=== PATIENT | female | born 1950 | race Caucasian/White ===

== ENCOUNTER → 2024-01-08 | Outpatient (CLI) | payer MEDICARE, MEDICAID, SELFPAY ==
[2024-01-08 10:55] LABS: Basophils % (Auto) 1 % (0-2.5); Eosinophils # (Auto) 0.1 Thou/mm3 (0.0-0.5); Eosinophils % (Auto) 2 % (0-10); Hematocrit 35.6 % (36.0-46.0); Hemoglobin 11.4 g/dL (12.0-16.0); Immature Granulocytes % (Auto) 0 % (0-0); Lymphocytes # (Auto) 1.5 Thou/mm3 (1.0-4.8); Lymphocytes % (Auto) 35 % (10-50); Mean Corpuscular Hemoglobin 33.6 pg (25.0-35.0); Mean Corpuscular Volume 105 fL (80-100); Monocytes # (Auto) 0.6 Thou/mm3 (0.0-0.8); Monocytes % (Auto) 14 % (0-12); Neutrophils % (Auto) 48 % (37-80); Nucleated Red Blood Cell % 0 /100 WBC (0); Platelet Count 252 Thou/mm3 (140-440); RDW Standard Deviation 60.2 fL (36.4-46.3); Red Blood Count 3.39 Miln/mm3 (4.00-5.20); White Blood Count 4.2 Thou/mm3 (3.6-11.0)
[2024-01-08 10:56] LABS: Parathyroid Hormone Intact 205.2 pg/ml (18.5-88.0)
[2024-01-08 10:58] LABS: Alanine Aminotransferase 49 U/L (10-49); Albumin, Serum 4.8 gm/dL (3.4-4.8); Albumin/Globulin Ratio 2.1 (1.2-2.2); Alkaline Phosphatase 139 U/L (46-116); Anion Gap 3 (7-16); Aspartate Amino Transferase 36 U/L (0-34); BUN/Creatinine Ratio 21 Ratio (12-20); Bilirubin,Total 0.6 mg/dL (0.3-1.2); Blood Urea Nitrogen 23 mg/dL (9-23); Calcium 9.7 mg/dL (8.3-10.6); Calcium (Corrected) 9.7 mg/dL (8.5-10.1); Carbon Dioxide 29.1 mMol/L (20.0-31.0); Chloride 107 mMol/L (98-107); Creatinine (Component) 1.1 mg/dL (0.6-1.3); Free T4 (Free Thyroxine) 1.26 ng/dL (0.89-1.76); Globulin 2.3 gm/dL (2.3-3.5); Glucose 130 mg/dL (74-106); Osmolality,Calculated 283 (275-295); Phosphorous 3.7 mg/dL (2.4-5.1); Potassium 4.4 mMol/L (3.4-5.1); Sodium 139 mMol/L (136-145); Thyroid Stimulating Hormone 9.52 uIU/mL (0.55-4.78); Total Protein 7.1 gm/dL (5.7-8.2); eGFR 54 See Note
== END | disposition home or self-care (01) ==
LOC: COPL 09:22
PROVIDERS: PCP Nurse Practitioner Family; Referring Provider Internal Medicine Nephrology; Visit Provider Internal Medicine Nephrology
DX: I12.9 Hypertensive chronic kidney disease with stage 1 through stage 4 chronic kidney disease, or unspecified chronic kidney disease (principal); N18.9 Chronic kidney disease, unspecified; D63.1 Anemia in chronic kidney disease; E21.3 Hyperparathyroidism, unspecified; E03.9 Hypothyroidism, unspecified
CPT/HCPCS: 36415; 80053; 83970; 84100; 84439; 84443; 85025

== ENCOUNTER 2024-01-24 13:29 | Outpatient (AMB) | payer MEDICARE, MEDICAID, SELFPAY ==
[2024-01-24 13:39] VITALS: BP 138/97; PULSE 67; RESP 18; TEMP 36.6; O2SAT 94; BMI 31.5
--- NOTE | 2024-01-24 13:39 | ORTHONT_ITS ---
Vital signs 01/24/24 13:39 Height 1.7 m Height Method Stated Weight 91.229 kg Weight Measurement Method Standing Scale BMI 31.5 BP 138/97 H Blood Pressure Source Automatic Cuff Blood Pressure Location Right Upper Arm Position Sitting Respiration 18 Pulse 67 Pulse Source Monitor Temp 97.8 F Temp Source Temporal Artery Scan Pulse Oximetry (%) 94 L Oxygen Delivery Method Room Air Med/Allergies Allergies & Medications Allergies amoxicillin [From Augmentin] Allergy (Intermediate, Verified 01/24/24 13:40) Gastrointestinal Upset clavulanic acid [From Augmentin] Adverse Reaction (Intermediate, Verified 01/24/24 13:40) Gastrointestinal Upset Medication Reconciliation loratadine 10 mg tablet (Claritin) 10 mg PO QDAY #0 tabs 08/31/14 [History Confirmed 01/24/24] acyclovir 400 mg tablet 400 mg PO QDAY 07/07/18 [History Confirmed 01/24/24] albuterol sulfate 90 mcg/actuation aerosol inhaler 2 puff inhalation Q6H PRN Wheezing 01/06/19 [History Confirmed 01/24/24] hmthgvm-gjibvddnr-udgi tablet 1 tab PO DAILY 01/06/19 [History Confirmed 01/24/24] B-complex with vitamin C (Super B Complex-Vitamin C tablet) 1 tab PO QDAY 08/12/19 [History Confirmed 01/24/24] ascorbic acid (vitamin C) 1,000 mg tablet (Vitamin C) 1,000 mg PO QDAY 08/12/19 [History Confirmed 01/24/24] uemzvfvbahhm-nylibypa-ctame acid 400 mcg-vitamin K 80 mcg capsule (Multi For Her 50 Plus) 1 cap PO QDAY 08/12/19 [History Confirmed 01/24/24] atorvastatin 40 mg tablet 40 mg PO QDAY 09/29/20 [History Confirmed 01/24/24] furosemide 40 mg tablet 80 mg PO QDAY 09/29/20 [History Confirmed 01/24/24] isosorbide mononitrate 30 mg tablet,extended release 24 hr 30 mg PO QDAY 09/29/20 [History Confirmed 01/24/24] tiotropium bromide 1.25 mcg/actuation mist for inhalation (Spiriva Respimat) 2 puff inhalation Q24H 08/22/21 [History Confirmed 01/24/24] acetaminophen 500 mg tablet 1,000 mg PO Q6H PRN Pain 08/13/22 [History Confirmed 01/24/24] biotin 5 mg capsule 5 mg PO QDAY 08/13/22 [History Confirmed 01/24/24] carvedilol 3.125 mg tablet 3.125 mg PO BID 08/13/22 [History Confirmed 01/24/24] diclofenac sodium 1 % topical gel 4 g topical QID 08/13/22 [History Confirmed 01/24/24] diphenhydramine HCl 25 mg tablet 50 mg PO HS Sleep Disorder 08/13/22 [History Confirmed 01/24/24] famotidine 20 mg tablet (Pepcid) 20 mg PO QDAY PRN Heartburn 08/13/22 [History Confirmed 01/24/24] gabapentin 800 mg tablet 800 mg PO TID 08/13/22 [History Confirmed 01/24/24] hydrocodone 5 mg-acetaminophen 325 mg tablet 1 tab PO Q6H PRN pain #20 tabs 08/14/22 [Rx Confirmed 01/24/24] levothyroxine 150 mcg tablet 150 mcg PO QDAY 02/09/23 [History Confirmed 01/24/24] metformin 850 mg tablet 850 mg PO BIDWMEAL 02/09/23 [History Confirmed 01/24/24] tizanidine 4 mg tablet 4 mg PO BID PRN Muscle Spasm 02/09/23 [History Confirmed 01/24/24] aspirin 81 mg tablet 81 mg PO QDAY 07/19/23 [History Confirmed 01/24/24] lidocaine HCl 2 % mucosal solution (Lidocaine Viscous) 1 ml topical Q4HR PRN pain #30 mL 12/06/23 [Rx Confirmed 01/24/24] ferrous sulfate 325 mg (65 mg iron) tablet 325 mg PO QDAY 01/24/24 [History Confirmed 01/24/24] Subjective Visit Visit for: follow up visit and knee Immunization / Flu Flu Vaccine in the Last 12 Months: No Flu Vaccine Exclusion Criteria: No Exclusion Criteria History of Present Illness Chief complaint: FOLLOW UP Harriet is a pleasant 73-year-old female with who had a right knee replacement in 2015 followed by a left knee replacement 2016. She is recovering from her right total hip replacement with Dr. Eid and is doing well. Pain Pain level (0-10): 7 Pain duration: ALL DAY Pain location: inside (medial), outside (lateral), anterior and posterior Pain quality: sharp Pain timing: increases with activity Associated signs & symptoms: none Ambulatory data Ambulatory device: cane Treatments Improvement with previous injections: No Improvement with PT: No Improvement with NSAIDS: no Review of Systems Review of Systems: All systems negative unless otherwise noted in HPI. Exam Exam Patient is in no acute distress and is cooperative with the examination today. Breathing is nonlabored. In no respiratory distress. Bilateral extremities were evaluated and demonstrates sensation intact to light touch. Palpable pedal pulses are present. No significant edema is present. Right knee demonstrates instability. Assessment and Plan Problem List (1) Knee instability: Status: Acute Plan: Patient is a pleasant 73-year-old female with knee instability. She had a total knee replacement 5 years ago. It is grossly unstable in both AP and lateral michelle suzy. She reports that she gets effusions and she frequently gets this drained. I discussed I do not recommend this. I discussed that there is usually a secondary cause of the effusion. She is doing well after her hip replacement. She has left hip and right knee pain but wants to wait and see what happens before pursing anything. Advanced Care Planning Discussion Advance care planning discussed with:: patient Office Procedures GNS Level of Care Nursing/Assessment Patient Status: Established Patient Nursing Assessment/Reassesment: Medication Reconciliation, Update PMH in EMR and Vital Signs Coordination of Care: Complex Care and Chronic Disease 1-5, Education Complex Pt/Fam, Consent,records obtained, informed consent, Results/Orders obtained and Staff clarify orders Established Patient Charge Established Patient Point Assignment: 95 Established Patient Point Charge: EP Level 3 (80-115) Past Medical History Past Medical History Have you ever been diagnosed with any of the following: Neurological Problems Seizures: No Cardiology Problems Hypercholesterolemia: Yes Congestive Heart Failure: No Edema: Yes Hypertension: Yes Respiratory Problems Chronic Obstructive Pulmonary Disease (COPD): Yes Asthma: No Bronchitis: Yes Pneumonia: Yes Smoking: Yes (quit 9 years ago) Smoking Exposure: No Stomache/Intestinal Problems Gall Bladder Disease: Yes Hemorrhoids: Yes Gastroesophageal Reflux Disease: No Obesity: Yes Genital/Urinary Problems Renal Disease: Yes Reproductive Problems Breast Cancer: No Pelvic Inflammatory Disease: No Previous Pregnancies: Yes Musculoskeletal Problems Arthritis: Yes Osteoporosis: No Degenerative Disk Disease: Yes Fractures: Yes (RIGHT FOOT 10 YEARS AGO) Degenerative Joint Disease: Yes Head,Eye,Nose,Throat Problems Cataracts: Yes Deafness: Yes Endocrine Problems Diabetes Mellitus Type 1: No Diabetes Mellitus Type 2: Yes Hypothyroidism: Yes Blood Problems Anemia: No Sickle Cell Disease: No Clotting Problems: No Psychologic Problems Depression: No Anxiety: No Other Problems Hospitalization: No Shingles: No Falls: No Blood Transfusions: No Blood Transfusion Reaction: No Anesthesia Reactions: No Chemotherapy: No Radiation Therapy: No MRSA: No VRSA: No Vancomycin-Resistant Enterococci: No Chicken Pox: Yes Clostridium Difficile: No Cancer: Yes Lung Cancer: Yes Surgical History Hysterectomy: Yes
== END 2024-01-24 14:03 | disposition home or self-care (01) ==
LOC: HODSRG 13:29
PROVIDERS: PCP Nurse Practitioner Family; Referring Provider Nurse Practitioner Family; Supervising Provider Orthopaedic Surgery Adult Reconstructive Orthopaedic Surgery; Visit Provider Orthopaedic Surgery Adult Reconstructive Orthopaedic Surgery
DX: M25.361 Other instability, right knee (principal); M25.552 Pain in left hip; M25.561 Pain in right knee; Z96.653 Presence of artificial knee joint, bilateral; I10 Essential (primary) hypertension; E78.00 Pure hypercholesterolemia, unspecified; J44.9 Chronic obstructive pulmonary disease, unspecified
CPT/HCPCS: 99213; G0463

== ENCOUNTER 2024-01-28 13:30 | Outpatient (RCR) | payer MEDICARE, MEDICAID, SELFPAY ==
--- NOTE | 2024-01-07 14:53 | PT.ODS1RPT ---
PT OP Progress/Discharge Note Date of Service: 01/07/24 Progress Note/DC Note Progress Note/Discharge Note: Progress Note Patient Information Visit Reasons: Right hip Surgery Service Continue Service or Discharge: Continue Service Status Subjective: Less difficulty lifting LE into and OOB and she is ambulating with a cane and driving which she is happy about. Objective: See F/S for therex R hip AROM: Flexion: 90 deg AB: 35 deg Gait: improved WB on R LE with SPC Assessment: Pt has attended the eval and 7 Rx sessions with improved R hip ROM and strength. Pt has less tissue irritability of R hip and improved WB tolerance and hip flexor strength with SLR and making progress with goals. She is ambulating with a cane more now vs the FWW. Plan: Continue per POC up to 18 visits Procedure Charges Therapeutic Exercise 30 minutes: Yes
--- NOTE | 2024-01-09 18:09 | PT.ODAYNRPT ---
PT Outpatient Daily Note OP Daily Note Outpatient Physical Therapy Treatment Date: 01/09/24 Visit Reasons: Right hip Surgery Subjective: Less difficulty lifting LE into and OOB and she is ambulating with a cane and driving which she is happy about. Objective: See F/S for therex R hip AROM: Flexion: 90 deg AB: 35 deg Gait: improved WB on R LE with SPC Assessment: Pt has less tissue irritability of R hip and improved WB tolerance and hip flexor strength with SLR and making progress with goals. She is ambulating with a cane more now vs the FWW. Plan: Continue per POC Length of Time (minutes) of Treatment: 30 Minutes Procedure Charges Therapeutic Exercise 30 minutes: Yes
--- NOTE | 2024-01-14 14:32 | PT.ODAYNRPT ---
PT Outpatient Daily Note OP Daily Note Outpatient Physical Therapy Treatment Date: 01/14/24 Visit Reasons: Right hip Surgery Subjective: Less difficulty lifting LE into and OOB and she is ambulating with a cane and driving which she is happy about. Objective: See F/S for therex R hip AROM: Flexion: 90 deg AB: 35 deg Gait: improved WB on R LE with SPC Assessment: Pt has less tissue irritability of R hip and improved WB tolerance and hip flexor strength with SLR and making progress with goals. She is ambulating with a cane more now vs the FWW. Plan: Continue per POC Length of Time (minutes) of Treatment: 30 Minutes Procedure Charges Therapeutic Exercise 30 minutes: Yes
--- NOTE | 2024-01-16 14:02 | PTNOTE_ITS ---
PT Outpatient Daily Note OP Daily Note Outpatient Physical Therapy Treatment Date: 01/16/24 Visit Reasons: Right hip Surgery Subjective: Pt reports hip is progressing but slowly. Objective: Please see flow sheet for ther ex list Assessment: Focus on restoring ROM and functional strength, progressing interventions per post op protocol Plan: Continue with POC. Length of Time (minutes) of Treatment: 30 Minutes AGED OR DISABLED CARE WORKER Service Modifier Method I: Divide the number of min of care provided by the AGED OR DISABLED CARE WORKER/REPORT SPECIALIST by the total min of care provided then multiply by 100. If greater than 11 percent modifier is required. Method II: Divide the total time of care provided to patient by 10 (round to the nearest whole number) and add 1 min. to set the minimum time requirement. If treatment total was 60 min., then 10% of 6 min PT CQ modifier applied: CQ Modifier applied Procedure Charges Therapeutic Exercise 30 minutes: Yes
--- NOTE | 2024-01-21 14:08 | PT.ODAYNRPT ---
PT Outpatient Daily Note OP Daily Note Outpatient Physical Therapy Treatment Date: 01/21/24 Visit Reasons: Right hip Surgery Subjective: Pt reports R hip is doing better, notices she is walking short distance without cane and is more confident. Objective: Please see flow sheet for ther ex list. Assessment: Pt demonstrates increase endurance indicated by less seated rest breaks and increase tolerance for closed chain interventions. Plan: Continue with pOC. Length of Time (minutes) of Treatment: 30 Minutes Procedure Charges Therapeutic Exercise 30 minutes: Yes
--- NOTE | 2024-01-23 14:40 | PT.ODAYNRPT ---
PT Outpatient Daily Note OP Daily Note Outpatient Physical Therapy Treatment Date: 01/23/24 Visit Reasons: Right hip Surgery Subjective: Pt reports R hip is feeling better notices she can tolerate walking and being on her feet more at home. Objective: Please see flow sheet for thex list. Assessment: Pt demonstrates increase tolerance with lateral stepping indicated by pt able to perform more reps with less seated rest breaks. Plan: Continue with POC. Length of Time (minutes) of Treatment: 30 Minutes Procedure Charges Therapeutic Exercise 30 minutes: Yes
--- NOTE | 2024-01-28 14:20 | PT.ODAYNRPT ---
PT Outpatient Daily Note OP Daily Note Outpatient Physical Therapy Treatment Date: 01/28/24 Visit Reasons: Right hip Surgery Subjective: Pt reports hip is doing ok, pt mentioned she has been feeling short of breath yesterday and has an appointment with her leaf tinner today. As per pt primary care doctor said spo2 levels were raulito.l Objective: Please see flow sheet for ther ex list. Assessment: regressed interventions and interventions given with increase rest breaks to accommodate c/o SOB. Plan: Continue with POC. Length of Time (minutes) of Treatment: 30 Minutes CHIEF ENGINEER DRILLING AND RECOVERY Service Modifier Method I: Divide the number of min of care provided by the CHIEF ENGINEER DRILLING AND RECOVERY/LAVATORY ATTENDANT by the total min of care provided then multiply by 100. If greater than 11 percent modifier is required. Method II: Divide the total time of care provided to patient by 10 (round to the nearest whole number) and add 1 min. to set the minimum time requirement. If treatment total was 60 min., then 10% of 6 min PT CQ modifier applied: CQ Modifier applied Procedure Charges Therapeutic Exercise 30 minutes: Yes
== END 2024-02-01 23:59 | disposition home or self-care (01) ==
LOC: CPTX 13:30
PROVIDERS: PCP Nurse Practitioner Family; Referring Provider Physician Assistant; Visit Provider Physician Assistant
DX: M25.551 Pain in right hip (principal); R53.1 Weakness; Z96.641 Presence of right artificial hip joint
CPT/HCPCS: 97110

== ENCOUNTER 2024-01-29 09:03 | Emergency (ER) | payer MEDICARE, MEDICAID, SELFPAY ==
--- NOTE | 2024-01-29 09:11 | EKG_ITS ---
[facility] Test Date: 2024-01-29 Pat Name: NISHANT LOCKWOOD Department: Room: - Gender: Female Reporter Anchor: : 1950 Requested By: Romaine Trimble (JOSUE) Order Number: [id number] Reading MD: Romaine Trimble (PEELED POTATO INSPECTOR) Measurements Intervals [employer] Rate: 56 P: 71 HI: 174 QRS: 62 QRSD: 108 T: 46 QT: 437 QTc: 424 Interpretive Statements SINUS BRADYCARDIA WITH OCCASIONAL SUPRAVENTRICULAR PREMATURE COMPLEXES Compared to ECG 07/18/2023 12:46:30 No significant changes /store/S0/[id number].pdf
--- NOTE | 2024-01-29 09:20 | XR_ITS ---
Examination: AP chest single view Technique one AP upright portable chest single view Exam date and time: January 29, 2024 0959 hours Comparison December 05, 2023 INDICATIONS: Shortness of breath with, chronic, diagnosis lung cancer post surgery FINDINGS: Postsurgical changes left mediastinum Decreased volume left lung No significant cardiac enlargement No interval pneumonia or pulmonary edema Chronic left rib changes IMPRESSION: Postsurgical changes left mediastinum again noted No interval pneumonia or pulmonary edema
[2024-01-29 09:40] VITALS: BP 120/57; PULSE 117; RESP 24; TEMP 36.6; O2SAT 81
[2024-01-29 09:45] VITALS: PULSE 51
--- NOTE | 2024-01-29 09:52 | PD.EDSOB ---
ED SOB =RME/HPI General Chief Complaint: Shortness of Breath/Dyspnea Stated Complaint: SOB, irregular heart beat Time Seen by Provider: 01/29/24 09:49 Arrival date/time: 01/29/24 09:03 RME / HPI RME / HPI Narrative: 73 year old female with history of CHF, previous OK, COPD on 3L nasal cannula, hypertension, hyperlipidemia, s/p right hip surgery 12/03/2023 presents to the ED for shortness of breath and increased dyspnea on exertion beginning 2 days ago. Accompanied by a cough although reports is chronic and unchanged. Reportedly consulted with her pediatric medical assistant Dr. Calixto yesterday and had an EKG and physical exam performed. States she was told then to come to the ED for further evaluation. However, because the patient was seen late evening and is unable to drive at night, patient came today instead. Patient additionally reported she was started on Metropolol by pediatric medical assistant and took her first dose last night. Does not know why she was started on that medication. Denies fevers, chills, sweats, chest pain, abdominal pain, n/v/d, or urinary symptoms. Related Data Home Medications ?Medication ?Instructions ?Recorded ?Confirmed loratadine 10 mg tablet (Claritin) 10 mg PO QDAY #0 tabs 08/31/14 01/24/24 acyclovir 400 mg tablet 400 mg PO QDAY 07/07/18 01/24/24 albuterol sulfate 90 mcg/actuation 2 puff inhalation Q6H PRN Wheezing 01/06/19 01/24/24 aerosol inhaler wlqklbg-khqorpqsg-[id number] tablet 1 tab PO DAILY 01/06/19 01/24/24 B-complex with vitamin C (Super B 1 tab PO QDAY 08/12/19 01/24/24 Complex-Vitamin C tablet) ascorbic acid (vitamin C) 1,000 mg 1,000 mg PO QDAY 08/12/19 01/24/24 tablet (Vitamin C) foelviazgiks-meijcpmo-iaeoo acid 1 cap PO QDAY 08/12/19 01/24/24 400 mcg-vitamin K 80 mcg capsule (Multi For Her 50 Plus) atorvastatin 40 mg tablet 40 mg PO QDAY 09/29/20 01/24/24 furosemide 40 mg tablet 80 mg PO QDAY 09/29/20 01/24/24 isosorbide mononitrate 30 mg 30 mg PO QDAY 09/29/20 01/24/24 tablet,extended release 24 hr tiotropium bromide 1.25 2 puff inhalation Q24H 08/22/21 01/24/24 mcg/actuation mist for inhalation (Spiriva Respimat) acetaminophen 500 mg tablet 1,000 mg PO Q6H PRN Pain 08/13/22 01/24/24 biotin 5 mg capsule 5 mg PO QDAY 08/13/22 01/24/24 carvedilol 3.125 mg tablet 3.125 mg PO BID 08/13/22 01/24/24 diclofenac sodium 1 % topical gel 4 g topical QID 08/13/22 01/24/24 diphenhydramine HCl 25 mg tablet 50 mg PO HS Sleep Disorder 08/13/22 01/24/24 famotidine 20 mg tablet (Pepcid) 20 mg PO QDAY PRN Heartburn 08/13/22 01/24/24 gabapentin 800 mg tablet 800 mg PO TID 08/13/22 01/24/24 levothyroxine 150 mcg tablet 150 mcg PO QDAY 02/09/23 01/24/24 metformin 850 mg tablet 850 mg PO BIDWMEAL 02/09/23 01/24/24 tizanidine 4 mg tablet 4 mg PO BID PRN Muscle Spasm 02/09/23 01/24/24 aspirin 81 mg tablet 81 mg PO QDAY 07/19/23 01/24/24 ferrous sulfate 325 mg (65 mg 325 mg PO QDAY 01/24/24 01/24/24 iron) tablet Previous Rx's ?Medication ?Instructions ?Recorded hydrocodone 5 mg-acetaminophen 325 1 tab PO Q6H PRN pain #20 tabs 08/14/22 mg tablet lidocaine HCl 2 % mucosal solution 1 ml topical Q4HR PRN pain #30 mL 12/06/23 (Lidocaine Viscous) prednisone 50 mg tablet 50 mg PO QDAY #4 tabs 01/29/24 Allergies Allergy/AdvReac Type Severity Reaction Status Date / Time amoxicillin [From Augmentin] Allergy Intermediate Gastrointestinal Verified 01/24/24 13:40 Upset clavulanic acid AdvReac Intermediate Gastrointestinal Verified 01/24/24 13:40 [From Augmentin] Upset Review of Systems Review of Systems Narrative Review of Systems: Gen: No fever, no chills, no weight loss EYES: No discharge, no visual changes, no pain HEENT: No ear pain, no congestion, no sore throat PULM: +shortness of breath, +cough, no congestion CV: No chest pain, +dyspnea on exertion, no palpitations, no chest tightness GI: No nausea, no vomiting, no diarrhea, no pain, no constipation : No frequency, no urgency,? no dysuria Musc/skel: No joint pain, no back pain Skin: No rash, no ecchymosis, no lesions Psyc: No hallucinations, no depression Heme/Lymph: No easy bleeding or bruising tendencies Neuro: No weakness, no headache Past Medical History Past Medical History CARDIAC: Positive Cardiac Disorders, Hypercholesterolemia, Edema and Hypertension RESPIRATORY: Positive Chronic Obstructive Pulmonary Disease (COPD), Bronchitis, Pneumonia and Smoking (quit 9 years ago) GASTROINTESTINAL: Positive Gastrointestinal Disorders, Gall Bladder Disease, Hemorrhoids and Obesity GENITOURINARY: Positive Genitourinary Disorders and Renal Disease REPRODUCTIVE: Positive Previous Pregnancies MUSCULOSKELETAL: Positive Musculoskeletal Disorders, Arthritis, Degenerative Disk Disease, Fractures (RIGHT FOOT 10 YEARS AGO) and Degenerative Joint Disease ENT: Positive Cataracts and Deafness ENDOCRINE: Positive Endocrine Disorders, Diabetes Mellitus Type 2 and Hypothyroidism OTHER HISTORY: Positive Autoimmune Disease, Chicken Pox, Cancer and Lung Cancer Surgical History SURGICAL: Positive Eye Surgery, Tonsillectomy, Abdominal Surgery, Joint Replacement, Arthroscopy, Hysterectomy and Tubal Ligation Social History SMOKING STATUS: Current some day smoker SECOND HAND EXPOSURE: No SUBSTANCE USE: 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 MMM. EOMI, clear conjunctiva, oropharynx clear. NECK: Supple without lymphadenopathy. No stiffness or restricted ROM. HEART: Normal rate and regular rhythm, normal S1/S1, no m/r/g LUNGS: Speaking full sentences. CTAB, moving air well. No crackles or wheezes are heard. ABDOMEN: Soft, nontender, nondistended with good bowel sounds heard. BACK: No midline C/T/L spine pain or deformity, No CVAT, no obvious deformity. EXTREMITIES: Without cyanosis, clubbing or edema. MUSCULOSKELETAL: FROM of all major joints, no chest tenderness NEUROLOGICAL: Grossly nonfocal. Alert and oriented, moving all 4 extremities. CN not formally tested but appear grossly intact. Skin: Warm and dry without any rash. Course Course Course Narrative: chest xray ordered to help determine etiology of shortness of breath. Quality Measures none Orders Category Date Time Status Bedside COVID-19 Antigen Test NOW Care 01/29/24 09:21 Completed Bedside Influenza A&B Antigen Test NOW Care 01/29/24 09:[address] Screening NOW Care 01/29/24 10:40 Completed Strategy Manager NOW Care 01/29/24 09:20 Completed Continuous Pulse Oximetry NOW Care 01/29/24 09:26 Completed EKG (ED ONLY) *Do not use* NOW Care 01/29/24 09:11 Completed Insert IV NOW Care 01/29/24 09:[address] angio chest Stat Exams 01/29/24 10:40 Completed EKG (ED Only) Stat Exams 01/29/24 09:11 Draft XR chest 1V portable Stat Exams 01/29/24 09:20 Completed B-Type Natriuretic Peptide Stat Lab 01/29/24 09:40 Completed CBC Stat Lab 01/29/24 09:40 Completed Comprehensive Metabolic Panel Stat Lab 01/29/24 09:40 Completed Magnesium Stat Lab 01/29/24 09:40 Completed Partial Thromboplastin Time Stat Lab 01/29/24 09:40 Completed Prothrombin Time with INR Stat Lab 01/29/24 09:40 Completed Troponin I Stat Lab 01/29/24 09:40 Completed Albuterol/Ipratr Rt Aisha [Duoneb Rt Aisha] Med 01/29/24 13:52 Discontinued 6 ml INH X1 ONE predniSONE Med 01/29/24 13:52 Discontinued 60 mg PO X1 ONE Reevaluation(s) Reevaluation #1: Patient feels better after the nebulizer and oral steroids, she was able to walk the distance of the emergency department to the bathroom and back without shortness of breath. She?ll be discharged on oral steroids as a COPD exacerbation. We will have her hold the metoprolol that was started by her pediatric medical assistant yesterday due to her bradycardia here. Patient remains clinically stable throughout the emergency department visit. Re-assessment at the time of disposition demonstrates that the patient is in no acute distress. We reviewed all the results, analysis, and treatment plans. Patient is amenable to discharge. Strict return precautions were outlined. Patient was discharged in stable condition. Time: 17:07 Vital Signs Vital signs: Vital Signs Temperature 97.8 F 01/29/24 09:40 Pulse Rate 117 H 01/29/24 09:40 Respiratory Rate 24 H 01/29/24 09:40 Blood Pressure 120/57 L 01/29/24 09:40 Pulse Oximetry (%) 81 L 01/29/24 09:40 Oxygen Delivery Method Room Air 01/29/24 09:40 Pulse ox is 81% on room air which is hypoxic. Pulse ox is 95% on 2L which is adequate. Shortness of Breath / Dyspnea MDM Narrative MDM Narrative:: 73-year-old female with a history of advanced COPD, requiring oxygen, who presents with shortness of breath since yesterday. She was switched from carvedilol to metoprolol by her pediatric medical assistant and advised to come to the emergency department for the possibility of a pneumonia. As she was unable to drive during the dark last night she comes in this morning with respiratory difficulties. On clinical exam her respiratory distress is mild to moderate. Lung exams were distant with faint rhonchi but no obvious wheezes. Vital signs were significant for borderline sinus bradycardia, at rest she does drop to the high 40s on telemetry. Chest x-ray on my interpretation shows no acute cardiopulmonary findings, no cardiomegaly, I reviewed the radiology interpretation and agree. Given she has clear lung sounds, respiratory difficulty since yesterday, she is on metoprolol masking tachycardia, CT angio of the chest was done to rule out PE which was negative. She does have nonspecific opacification of her descending aorta which could be an aneurysm, however this would not be associated with her shortness of breath. Further dedicated angiography can be done as an outpatient. Patient was given a trial of steroids and bronchodilators with significant and near resolution of her symptoms. She was able to ambulate the distance of the emergency department without distress and is requesting discharge. As she had mild to moderate symptoms to start off with, and is not asymptomatic she should be appropriate for outpatient follow-up. I have asked her to hold her metoprolol until she can see her pediatric medical assistant, Dr. Calixto, at this point as there are no acute findings today consultation with cardiology is not indicated. I, Whit Diaz, am scribing for and in the presence of Dr. Forman. Patient data External records reviewed:: [facility] previous records (I reviewed ED visit on 12/06/2023) Clinical information provided by:: patient Social determinants that could affect healthcare access:: none Patient has the following chronic illnesses:: CHF, previous OK, COPD on 3L nasal cannula, hypertension, hyperlipidemia, s/p right hip surgery 12/03/2023 How is presenting disease/condition affected by chronic disease/condition?: exacerbated by Evaluation data The following diagnostics were reviewed and interpreted by me:: lab results, radiology exam(s) and EKG tracing(s) (Sinus bradycardia, rate 56, no acute ST or T-wave changes, no STEMI. ) Lab and/or radiology exams considered but not ordered:: None Interpretation Summary: Ordering Physician: Nai MEEHAN)Romaine NP Date of Service: 01/29/24 Procedure(s): XR chest 1V portable Accession Number(s): [id number] cc: Nai MEEHAN),Romaine SALAS; Jluis Giron MD~ Examination: AP chest single view Technique one AP upright portable chest single view Exam date and time: January 29, 2024 0959 hours Comparison December 05, 2023 INDICATIONS: Shortness of breath with, chronic, diagnosis lung cancer post surgery FINDINGS: Postsurgical changes left mediastinum Decreased volume left lung No significant cardiac enlargement No interval pneumonia or pulmonary edema Chronic left rib changes IMPRESSION: Postsurgical changes left mediastinum again noted No interval pneumonia or pulmonary edema Dictated By:Jluis Giron MD Signed By:<Electronically signed by Jluis Giron MD in OV>01/29/24 1003 Ordering Physician: Zachary Forman MD Date of Service: 01/29/24 Procedure(s): CT angio chest Accession Number(s): [id number] cc: Zachary Forman MD; Jluis Giron MD; NO PRIMARY/FAMILY,PHYSICIAN~ Examination: CTA chest with intravenous contrast 2-D reconstructions 3-D reconstructions, vascular Date and time of exam: January 29, 2024 1256 hours INDICATIONS: 2 months postop right hip surgery of onset SOB shortness of breath chest pain today, clinical diagnosis pulmonary emboli CTDI: vol (mGy) 18.6 DLP: (mGycm) 5 Technique: Multiple axial sections of the thorax have been obtained. 3 mm slice thickness, from below the hemidiaphragms to above the apices of the lungs. Mediastinal and lung density settings have been obtained. 2-D sagittal and coronal reconstructions. 3-D angiographic renderings, 3-D volume renderings, 3D post processing, vascular maximum intensity projections obtained. Contrast administered is 100 cc Isovue-370. Low dose protocols were performed. One or more of the following dose reduction techniques were used; automated exposure control, adjustment of the mA and/or KV according to patient size, use of iterative reconstruction technique. Findings: Aneurysmal dilatation ascending thoracic aorta, AP dimension 5.2 cm Contrast opacification of the thoracic aorta is poor No pulmonary artery emboli No paratracheal tracheobronchial or bronchopulmonary adenopathy 4 mm pulmonary nodule left lower lobe image 213 Cirrhosis, liver nodular in contour No visualized liver lesions Absent gallbladder No pancreatic or adrenal mass Kidneys partially visualized no hydronephrosis IMPRESSION: Aneurysmal dilatation ascending thoracic aorta, AP dimension 5.2 cm, there is no diagnostic contrast opacification of the ascending thoracic aorta, consider elective CTA thoracic aorta with proper contrast opacification Negative for pulmonary artery emboli 4 mm pulmonary nodule left lower lobe, with this study is baseline recommend 6 month follow-up CT chest without contrast Cirrhosis Dictated By:Jluis Giron MD Signed By:<Electronically signed by Jluis Giron MD in OV>01/29/24 1333 Medications / Prescriptions Medications or Prescriptions considered but not ordered:: None Medication administrations:: Medication Administration History Discontinued Medications Albuterol/Ipratropium (Albuterol/Ipratropium (Duoneb) Rt Aisha 3 Ml Nebu) 6 ml INH X1 ONE Stop: 01/29/24 13:53 Last Admin: 01/29/24 14:39 Dose: 6 ml Documented By: NATANAEL Prednisone (Prednisone 20 Mg Tablet) 60 mg PO X1 ONE Stop: 01/29/24 13:53 Last Admin: 01/29/24 15:25 Dose: 60 mg Documented By: VG See above Consultations Consultation(s) initiated? (list below): No Diagnosis Shortness of Breath Differential Diagnosis: acute exacerbation of chronic obstructive airways disease, congestive heart failure, community acquired pneumonia and pulmonary embolism Most likely diagnosis given after review of the tests above:: COPD exacerbation Bradycardia Admission Indicated Admission indicated?: not indicated Admission Request Was there a request for admission?: No Disposition Plan Disposition Plan: Discharge Discharge Attestation Discharge Attestation: The patient and all family members were given an opportunity to ask questions and understood the discharge instructions. Discharge instructions specifically effects, indications for sooner follow up or return to the emergency department, and the expected course of current diagnosis. Patient condition: Stable Critical Care Time Critical Care Time Critical Care Time: Yes Total Critical Care Time (min.): 45 Attestation: The high probability of sudden, clinically significant deterioration in the patient's condition required the highest level of my preparedness to intervene urgently. The services I provided to this patient were to treat and/or prevent clinically significant deterioration. Services included the following: chart data review, reviewing nursing notes and/or old charts, documentation time, outside solar sales consultant collaboration regarding findings and treatment options, medication orders and management, direct patient care, vital sign assessments and ordering, interpreting and reviewing diagnostic studies and lab tests. Aggregate critical care time includes only time during which I was engaged in work directly related to the patient's care, as described above, whether at bedside or elsewhere in the Emergency Department. It did not include time spent performing other reported procedures or the services of residents, students, nurses or physician assistants. Discharge Plan Plan Patient Disposition: HOME (Self Care) Prescriptions/Referrals Prescriptions/Med Rec: New prednisone 50 mg tablet 50 mg PO QDAY Qty: 4 0RF No Action ferrous sulfate 325 mg (65 mg iron) tablet 325 mg PO QDAY atorvastatin 40 mg tablet 40 mg PO QDAY furosemide 40 mg tablet 80 mg PO QDAY isosorbide mononitrate 30 mg tablet extended release 24 hr 30 mg PO QDAY Spiriva Respimat 1.25 mcg/actuation mist 2 puff inhalation Q24H loratadine [Claritin] 10 MG tablet 10 mg PO QDAY Qty: 0 acyclovir 400 mg Tablet 400 mg PO QDAY [id number] Tablet 1 tab PO DAILY albuterol sulfate 90 mcg/actuation Hfa Aerosol Inhaler 2 puff INHALATION Q6H PRN (Reason: Wheezing) ascorbic acid (vitamin C) [Vitamin C] 1,000 mg Tablet 1,000 mg PO QDAY B-complex with vitamin C [Super B Complex-Vitamin C] Tablet 1 tab PO QDAY Multi For Her 50 Plus 400-80 mcg Capsule 1 cap PO QDAY biotin 5 mg Capsule 5 mg PO QDAY acetaminophen 500 mg Tablet 1,000 mg PO Q6H PRN (Reason: Pain) carvedilol 3.125 mg tablet 3.125 mg PO BID Patient Comments: TAKE ONE TABLET BY MOUTH TWICE DAILY FOR BLOOD PRESSURE WITH FOOD famotidine [Pepcid] 20 mg Tablet 20 mg PO QDAY PRN (Reason: Heartburn) gabapentin 800 mg tablet 800 mg PO TID Patient Comments: TAKE ONE TABLET BY MOUTH THREE TIMES DAILY NEEDED FOR PAIN diphenhydramine HCl 25 mg Tablet 50 mg PO HS diclofenac sodium 1 % Gel 4 g TOPICAL QID Rx Instructions: apply to single knee, ankle, foot; for foot includes sole/toes/top of foot hydrocodone-acetaminophen 5-325 mg tablet 1 tab PO Q6H MDD 4 PRN (Reason: pain) Qty: 20 0RF tizanidine 4 mg Tablet 4 mg PO BID PRN (Reason: Muscle Spasm) metformin 850 mg Tablet 850 mg PO BIDWMEAL Hold Instructions: Resume on 07/21/23. hold metformin 48 hours, resume on 07/23/2023 levothyroxine 150 mcg Tablet 150 mcg PO QDAY aspirin 81 mg Tablet 81 mg PO QDAY lidocaine HCl [Lidocaine Viscous] 2 % solution 1 ml topical Q4HR PRN (Reason: pain) Qty: 30 0RF Referrals: No Primary/Family,Physician [Primary Care Provider] - In 1 week Problem List Clinical Impression: COPD exacerbation, Bradycardia Patient/Caregiver Discharge Instructions Education Materials: ED Bradycardia, ED COPD Flare Additional Instructions: Please hold the metoprolol started yesterday. Follow-up with your pediatric medical assistant Dr. Calixto in 3-5 days for recheck. You can return to the emergency department sooner if symptoms worsen or for any new or concerning issues. Print Language: Burmese Stand Alone Forms: Marge Award Info., Patient Portal Info Letter
[2024-01-29 10:13] LABS: Basophils % (Auto) 1 % (0-2.5); Eosinophils # (Auto) 0.1 Thou/mm3 (0.0-0.5); Eosinophils % (Auto) 1 % (0-10); Hematocrit 37.6 % (36.0-46.0); Hemoglobin 12.4 g/dL (12.0-16.0); Immature Granulocytes % (Auto) 0 % (0-0); Lymphocytes # (Auto) 1.5 Thou/mm3 (1.0-4.8); Lymphocytes % (Auto) 31 % (10-50); Mean Corpuscular Hemoglobin 33.6 pg (25.0-35.0); Mean Corpuscular Volume 102 fL (80-100); Monocytes # (Auto) 0.6 Thou/mm3 (0.0-0.8); Monocytes % (Auto) 13 % (0-12); Neutrophils # (Auto) 2.6 Thou/mm3 (1.8-7.7); Neutrophils % (Auto) 54 % (37-80); Nucleated Red Blood Cell % 0 /100 WBC (0); Platelet Count 233 Thou/mm3 (140-440); RDW Standard Deviation 53.1 fL (36.4-46.3); Red Blood Count 3.69 Miln/mm3 (4.00-5.20); White Blood Count 4.8 Thou/mm3 (3.6-11.0)
[2024-01-29 10:25] LABS: Partial Thromboplastin Time 25.6 Seconds (22.0-36.0); Prothrombin Time 11.4 Seconds (9.0-12.2)
[2024-01-29 10:28] LABS: B-Type Natriuretic Peptide 283 pg/mL (0-100)
[2024-01-29 10:30] LABS: Alanine Aminotransferase 18 U/L (10-49); Albumin, Serum 5.4 gm/dL (3.4-4.8); Albumin/Globulin Ratio 2.1 (1.2-2.2); Alkaline Phosphatase 107 U/L (46-116); Anion Gap 8 (7-16); Aspartate Amino Transferase 26 U/L (0-34); BUN/Creatinine Ratio 15 Ratio (12-20); Bilirubin,Total 0.7 mg/dL (0.3-1.2); Blood Urea Nitrogen 18 mg/dL (9-23); Calcium 10.6 mg/dL (8.3-10.6); Calcium (Corrected) 10.6 mg/dL (8.5-10.1); Carbon Dioxide 29.7 mMol/L (20.0-31.0); Chloride 99 mMol/L (98-107); Creatinine (Component) 1.2 mg/dL (0.6-1.3); Globulin 2.6 gm/dL (2.3-3.5); Glucose 118 mg/dL (74-106); Osmolality,Calculated 276 (275-295); Potassium 3.6 mMol/L (3.4-5.1); Sodium 137 mMol/L (136-145); Troponin I < 0.020 ng/mL (0.0-0.045); eGFR 48 See Note
--- NOTE | 2024-01-29 10:40 | XR_ITS ---
Examination: CTA chest with intravenous contrast 2-D reconstructions 3-D reconstructions, vascular Date and time of exam: January 29, 2024 1256 hours INDICATIONS: 2 months postop right hip surgery of onset SOB shortness of breath chest pain today, clinical diagnosis pulmonary emboli CTDI: vol (mGy) 18.6 DLP: (mGycm) 5 Technique: Multiple axial sections of the thorax have been obtained. 3 mm slice thickness, from below the hemidiaphragms to above the apices of the lungs. Mediastinal and lung density settings have been obtained. 2-D sagittal and coronal reconstructions. 3-D angiographic renderings, 3-D volume renderings, 3D post processing, vascular maximum intensity projections obtained. Contrast administered is 100 cc Isovue-370. Low dose protocols were performed. One or more of the following dose reduction techniques were used; automated exposure control, adjustment of the mA and/or KV according to patient size, use of iterative reconstruction technique. Findings: Aneurysmal dilatation ascending thoracic aorta, AP dimension 5.2 cm Contrast opacification of the thoracic aorta is poor No pulmonary artery emboli No paratracheal tracheobronchial or bronchopulmonary adenopathy 4 mm pulmonary nodule left lower lobe image 213 Cirrhosis, liver nodular in contour No visualized liver lesions Absent gallbladder No pancreatic or adrenal mass Kidneys partially visualized no hydronephrosis IMPRESSION: Aneurysmal dilatation ascending thoracic aorta, AP dimension 5.2 cm, there is no diagnostic contrast opacification of the ascending thoracic aorta, consider elective CTA thoracic aorta with proper contrast opacification Negative for pulmonary artery emboli 4 mm pulmonary nodule left lower lobe, with this study is baseline recommend 6 month follow-up CT chest without contrast Cirrhosis
[2024-01-29 11:59] VITALS: BP 110/70; PULSE 49; RESP 20; TEMP 36.7; O2SAT 95
[2024-01-29 12:03] VITALS: BP 98/65; PULSE 47; RESP 21; O2SAT 99
--- NOTE | 2024-01-29 12:50 | PC.NURSE ---
pt taken to CT.
[2024-01-29 14:25] VITALS: BP 130/73; PULSE 51; RESP 18; TEMP 36.6; O2SAT 98
[2024-01-29] MEDS: ALBUTEROL/IPRATROPIUM (Duoneb) RT SOL 3 ML NEBU 6 ML INH (14:39)
[2024-01-29 14:46] VITALS: PULSE 44; RESP 18; O2SAT 100
[2024-01-29] MEDS: predniSONE 20 MG TABLET 60 MG PO (15:25)
== END 2024-01-29 17:15 | disposition home or self-care (01) ==
PROVIDERS: Nurse Practitioner Primary Care; Emergency Provider Emergency Medicine
DX: J44.1 Chronic obstructive pulmonary disease with (acute) exacerbation (principal); R00.1 Bradycardia, unspecified; I49.1 Atrial premature depolarization; K74.60 Unspecified cirrhosis of liver; I71.21 Aneurysm of the ascending aorta, without rupture; I50.9 Heart failure, unspecified; I11.0 Hypertensive heart disease with heart failure; F17.200 Nicotine dependence, unspecified, uncomplicated; E78.00 Pure hypercholesterolemia, unspecified; I25.2 Old myocardial infarction
CPT/HCPCS: 36415; 71045; 71275; 80053; 83735; 83880; 84484; 85025; 85610; 85730; 87400; 87811; 93005; 94640; 99291; A4649; A9270; J7512; Q9967

== ENCOUNTER → 2024-02-04 | Outpatient (CLI) | payer MEDICARE, MEDICAID, SELFPAY ==
[2024-02-04 11:17] LABS: Basophils % (Auto) 0 % (0-2.5); Eosinophils # (Auto) 0.1 Thou/mm3 (0.0-0.5); Eosinophils % (Auto) 1 % (0-10); Hematocrit 37.7 % (36.0-46.0); Hemoglobin 12.1 g/dL (12.0-16.0); Immature Granulocytes % (Auto) 0 % (0-0); Immature Granulocytes Auto 0.01 Thou/mm3 (0.00-0.00); Lymphocytes # (Auto) 2.4 Thou/mm3 (1.0-4.8); Lymphocytes % (Auto) 36 % (10-50); Mean Corpuscular HGB Conc 32.1 g/dl (31.0-37.0); Mean Corpuscular Hemoglobin 33.2 pg (25.0-35.0); Mean Corpuscular Volume 103 fL (80-100); Monocytes # (Auto) 0.8 Thou/mm3 (0.0-0.8); Monocytes % (Auto) 13 % (0-12); Neutrophils # (Auto) 3.2 Thou/mm3 (1.8-7.7); Neutrophils % (Auto) 50 % (37-80); Nucleated Red Blood Cell % 0 /100 WBC (0); Platelet Count 257 Thou/mm3 (140-440); Red Blood Count 3.65 Miln/mm3 (4.00-5.20); White Blood Count 6.5 Thou/mm3 (3.6-11.0)
[2024-02-04 11:38] LABS: Glucose Estimated Average 103 mg/dL (80-131); Hemoglobin A1C 5.2 % Hgb (4.8-6.0)
[2024-02-04 11:45] LABS: Parathyroid Hormone Intact 121.1 pg/ml (18.5-88.0)
[2024-02-04 11:46] LABS: Alanine Aminotransferase 161 U/L (10-49); Albumin, Serum 5.2 gm/dL (3.4-4.8); Albumin/Globulin Ratio 2.7 (1.2-2.2); Alkaline Phosphatase 109 U/L (46-116); Anion Gap 9 (7-16); Aspartate Amino Transferase 82 U/L (0-34); BUN/Creatinine Ratio 25 Ratio (12-20); Bilirubin,Total 0.7 mg/dL (0.3-1.2); Blood Urea Nitrogen 30 mg/dL (9-23); Calcium 10.5 mg/dL (8.3-10.6); Calcium (Corrected) 10.5 mg/dL (8.5-10.1); Carbon Dioxide 33.9 mMol/L (20.0-31.0); Chloride 95 mMol/L (98-107); Creatinine (Component) 1.2 mg/dL (0.6-1.3); Globulin 1.9 gm/dL (2.3-3.5); Glucose 109 mg/dL (74-106); Osmolality,Calculated 282 (275-295); Potassium 4.3 mMol/L (3.4-5.1); Sodium 138 mMol/L (136-145); Total Protein 7.1 gm/dL (5.7-8.2); eGFR 48 See Note
== END | disposition home or self-care (01) ==
LOC: COPL 10:31
PROVIDERS: PCP Nurse Practitioner Family; Referring Provider Internal Medicine Nephrology; Visit Provider Internal Medicine Nephrology
DX: I12.9 Hypertensive chronic kidney disease with stage 1 through stage 4 chronic kidney disease, or unspecified chronic kidney disease (principal); E11.22 Type 2 diabetes mellitus with diabetic chronic kidney disease; N18.9 Chronic kidney disease, unspecified; D63.1 Anemia in chronic kidney disease; E78.5 Hyperlipidemia, unspecified; E21.3 Hyperparathyroidism, unspecified; E83.39 Other disorders of phosphorus metabolism
CPT/HCPCS: 36415; 80053; 83036; 83970; 84100; 85025

== ENCOUNTER → 2024-02-19 | Outpatient (CLI) | payer MEDICARE, MEDICAID, SELFPAY ==
[2024-02-19 10:11] LABS: Basophils % (Auto) 1 % (0-2.5); Eosinophils % (Auto) 1 % (0-10); Hematocrit 34.5 % (36.0-46.0); Immature Granulocytes % (Auto) 0 % (0-0); Immature Granulocytes Auto 0.01 Thou/mm3 (0.00-0.00); Lymphocytes # (Auto) 1.1 Thou/mm3 (1.0-4.8); Lymphocytes % (Auto) 29 % (10-50); Mean Corpuscular HGB Conc 31.9 g/dl (31.0-37.0); Mean Corpuscular Volume 100 fL (80-100); Monocytes # (Auto) 0.5 Thou/mm3 (0.0-0.8); Monocytes % (Auto) 14 % (0-12); Neutrophils # (Auto) 2.1 Thou/mm3 (1.8-7.7); Neutrophils % (Auto) 56 % (37-80); Nucleated Red Blood Cell % 0 /100 WBC (0); Platelet Count 175 Thou/mm3 (140-440); RDW Standard Deviation 51.3 fL (36.4-46.3); Red Blood Count 3.44 Miln/mm3 (4.00-5.20); White Blood Count 3.7 Thou/mm3 (3.6-11.0)
[2024-02-19 10:30] LABS: Parathyroid Hormone Intact 215.6 pg/ml (18.5-88.0)
[2024-02-19 10:31] LABS: Alanine Aminotransferase 25 U/L (10-49); Albumin, Serum 4.7 gm/dL (3.4-4.8); Albumin/Globulin Ratio 2.6 (1.2-2.2); Alkaline Phosphatase 76 U/L (46-116); Anion Gap 9 (7-16); Aspartate Amino Transferase 19 U/L (0-34); BUN/Creatinine Ratio 19 Ratio (12-20); Bilirubin,Total 0.6 mg/dL (0.3-1.2); Blood Urea Nitrogen 23 mg/dL (9-23); Calcium 9.7 mg/dL (8.3-10.6); Calcium (Corrected) 9.7 mg/dL (8.5-10.1); Carbon Dioxide 31.8 mMol/L (20.0-31.0); Chloride 97 mMol/L (98-107); Creatinine (Component) 1.2 mg/dL (0.6-1.3); Globulin 1.8 gm/dL (2.3-3.5); Glucose 138 mg/dL (74-106); Osmolality,Calculated 281 (275-295); Phosphorous 4.2 mg/dL (2.4-5.1); Potassium 4.1 mMol/L (3.4-5.1); Sodium 138 mMol/L (136-145); Total Protein 6.5 gm/dL (5.7-8.2); eGFR 48 See Note
== END | disposition home or self-care (01) ==
LOC: COPL 09:35
PROVIDERS: PCP Nurse Practitioner Family; Referring Provider Internal Medicine Nephrology; Visit Provider Internal Medicine Nephrology
DX: I12.9 Hypertensive chronic kidney disease with stage 1 through stage 4 chronic kidney disease, or unspecified chronic kidney disease (principal); N18.9 Chronic kidney disease, unspecified; D63.1 Anemia in chronic kidney disease; E21.3 Hyperparathyroidism, unspecified
CPT/HCPCS: 36415; 80053; 83970; 84100; 85025

== ENCOUNTER 2024-02-20 13:30 | Outpatient (RCR) | payer MEDICARE, MEDICAID, SELFPAY ==
--- NOTE | 2024-02-06 14:29 | PTNOTE_ITS ---
PT Outpatient Daily Note OP Daily Note Outpatient Physical Therapy Treatment Date: 02/06/24 Visit Reasons: right hip surgery Subjective: Pt reports hip is doing a lot better, was able to stand and cook thanksgiving meal. Pt shared that she went to the ER day before thanksgiving, her water softener service supervisor recommended her to go due to low HR. As per pt it was due to her medications she was taking, pt is feeling better now. Objective: Please see flow sheet for ther ex list. Assessment: Pt presents in clinic with increase endurance indicated by less rest breaks. Plan: Continue with POC. Length of Time (minutes) of Treatment: 30 Minutes CHIEF OPERATOR LOCK TENDER Service Modifier Method I: Divide the number of min of care provided by the CHIEF OPERATOR LOCK TENDER/RICHARD by the total min of care provided then multiply by 100. If greater than 11 percent modifier is required. Method II: Divide the total time of care provided to patient by 10 (round to the nearest whole number) and add 1 min. to set the minimum time requirement. If treatment total was 60 min., then 10% of 6 min PT CQ modifier applied: CQ Modifier applied Procedure Charges Therapeutic Exercise 30 minutes: Yes
--- NOTE | 2024-02-11 15:27 | PT.ODAYNRPT ---
PT Outpatient Daily Note OP Daily Note Outpatient Physical Therapy Treatment Date: 02/11/24 Visit Reasons: right hip surgery Subjective: Pt reports she is feeling fatigued and SOB again today. As per pt she has follow up with primary care doctor later today. Objective: Please see flow sheet for ther ex list. Finger pulse oxymeter reading 78-93% spo2 at RA and HR 54-68 BPM during and post exercise. Assessment: Pt presents in clinic with SOB, winded easily with light exercise. Pt sat in chair to rest, vitals were taken and not appropriate to continue with ther ex due to vitals not appropriate. PTOR made aware. Plan: Continue with vitals appropriate. INTAKE CLERK Service Modifier Method I: Divide the number of min of care provided by the INTAKE CLERK/RICHARD by the total min of care provided then multiply by 100. If greater than 11 percent modifier is required. Method II: Divide the total time of care provided to patient by 10 (round to the nearest whole number) and add 1 min. to set the minimum time requirement. If treatment total was 60 min., then 10% of 6 min PT CQ modifier applied: CQ Modifier applied Procedure Charges Therapeutic Exercise 30 minutes: Yes
--- NOTE | 2024-02-13 13:49 | PT.ODS1RPT ---
PT OP Progress/Discharge Note Date of Service: 02/12/25 Progress Note/DC Note Progress Note/Discharge Note: Progress Note Patient Information Visit Reasons: right hip surgery Service Continue Service or Discharge: Continue Service Status Subjective: Pt reports better strength and less pain in R hip. Objective: R hip AROM: Flexion: 90 deg Abduction: 35 deg Gait: some lateral sway, not using assistive device SLR: 45 deg Stairs: 6 x10 without pain Assessment: Pt has attended 16/ visits with good progress with therapy goals. She is able to ambulate without assistive device community distances and ascend and descend steps with low to no pain. Pt can SLR with better strength and much higher. Plan: Continue with 2 remaining visits then reassess Procedure Charges Therapeutic Exercise 30 minutes: Yes
--- NOTE | 2024-02-18 14:58 | PTNOTE_ITS ---
PT Outpatient Daily Note OP Daily Note Outpatient Physical Therapy Treatment Date: 02/18/24 Visit Reasons: right hip surgery Subjective: Pt reports hip is doing better, performs HEP daily. Objective: Please see flow sheet for ther ex list. Assessment: Progression of interventions completed with fatigue. Pt requires frequent seated rest breaks due to fatigue and SOB due to secondary COPD. Plan: Continue with POC. Length of Time (minutes) of Treatment: 30 Minutes DIRECTOR INTERNAL COMMUNICATIONS Service Modifier Method I: Divide the number of min of care provided by the DIRECTOR INTERNAL COMMUNICATIONS/CUSTOMS OFFICER by the total min of care provided then multiply by 100. If greater than 11 percent modifier is required. Method II: Divide the total time of care provided to patient by 10 (round to the nearest whole number) and add 1 min. to set the minimum time requirement. If treatment total was 60 min., then 10% of 6 min PT CQ modifier applied: CQ Modifier applied Procedure Charges Therapeutic Exercise 30 minutes: Yes
--- NOTE | 2024-02-20 15:18 | PT.ODS1RPT ---
PT OP Progress/Discharge Note Date of Service: 02/20/24 Progress Note/DC Note Progress Note/Discharge Note: Progress Note Patient Information Visit Reasons: right hip surgery Service Continue Service or Discharge: Continue Service Status Subjective: Pt reports better strength and less pain in R hip. Objective: R hip AROM: Flexion: 90 deg Abduction: 35 deg Gait: some lateral sway, not using assistive device SLR: 45 deg Stairs: 6 x10 without pain Assessment: Pt has attended visits with good progress with therapy goals. She is able to ambulate without assistive device community distances. Pt can SLR with better strength and much higher than the evaluation. Pt would benefit from additional therapy visits in order to improve strength with stairs. Plan: Request additional 8 visits to improve R hip strength. We will need provider's signature to continue with therapy and extend POC by 8 visits. Extend POC certification dates from 03/10/24 to 05/07/24 Procedure Charges Therapeutic Exercise 30 minutes: Yes
== END 2024-03-03 23:59 | disposition home or self-care (01) ==
LOC: CPTX 13:30
PROVIDERS: PCP Nurse Practitioner Family; Referring Provider Physician Assistant; Visit Provider Physician Assistant
DX: M25.551 Pain in right hip (principal); R53.1 Weakness; M16.11 Unilateral primary osteoarthritis, right hip
CPT/HCPCS: 97110

== ENCOUNTER → 2024-03-11 | Outpatient (CLI) | payer MEDICARE, MEDICAID, SELFPAY ==
[2024-03-11 10:19] LABS: Basophils # (Auto) 0.1 Thou/mm3 (0.0-0.2); Basophils % (Auto) 1 % (0-2.5); Eosinophils # (Auto) 0.1 Thou/mm3 (0.0-0.5); Eosinophils % (Auto) 1 % (0-10); Hematocrit 36.3 % (36.0-46.0); Hemoglobin 11.8 g/dL (12.0-16.0); Immature Granulocytes % (Auto) 0 % (0-0); Lymphocytes # (Auto) 1.5 Thou/mm3 (1.0-4.8); Lymphocytes % (Auto) 32 % (10-50); Mean Corpuscular HGB Conc 32.5 g/dl (31.0-37.0); Mean Corpuscular Volume 98 fL (80-100); Monocytes # (Auto) 0.7 Thou/mm3 (0.0-0.8); Monocytes % (Auto) 15 % (0-12); Neutrophils # (Auto) 2.5 Thou/mm3 (1.8-7.7); Neutrophils % (Auto) 51 % (37-80); Nucleated Red Blood Cell % 0 /100 WBC (0); Platelet Count 256 Thou/mm3 (140-440); RDW Standard Deviation 50.3 fL (36.4-46.3); Red Blood Count 3.69 Miln/mm3 (4.00-5.20); White Blood Count 4.8 Thou/mm3 (3.6-11.0)
[2024-03-11 10:47] LABS: Parathyroid Hormone Intact 167.4 pg/ml (18.5-88.0)
[2024-03-11 11:00] LABS: Alanine Aminotransferase 21 U/L (10-49); Albumin/Globulin Ratio 2.4 (1.2-2.2); Alkaline Phosphatase 91 U/L (46-116); Anion Gap 11 (7-16); Aspartate Amino Transferase 20 U/L (0-34); BUN/Creatinine Ratio 16 Ratio (12-20); Bilirubin,Total 0.4 mg/dL (0.3-1.2); Blood Urea Nitrogen 18 mg/dL (9-23); Calcium 10.1 mg/dL (8.3-10.6); Calcium (Corrected) 10.1 mg/dL (8.5-10.1); Carbon Dioxide 30.3 mMol/L (20.0-31.0); Chloride 99 mMol/L (98-107); Creatinine (Component) 1.1 mg/dL (0.6-1.3); Globulin 2.1 gm/dL (2.3-3.5); Glucose 104 mg/dL (74-106); Osmolality,Calculated 281 (275-295); Phosphorous 4.2 mg/dL (2.4-5.1); Potassium 4.3 mMol/L (3.4-5.1); Sodium 140 mMol/L (136-145); Total Protein 7.1 gm/dL (5.7-8.2); eGFR 54 See Note
[2024-03-11 11:09] LABS: Ferritin 45 ng/mL (7.3-270.7); Total Iron Binding Capacity 330 mcg/dL (250-425)
[2024-03-11 11:35] LABS: Iron 84 mcg/dL (50-170); Percent Iron Saturation 25 % (20-55); Unsaturated Iron Binding 246 (225-295)
== END | disposition home or self-care (01) ==
LOC: COPL 09:31
PROVIDERS: PCP Nurse Practitioner Family; Referring Provider Internal Medicine Nephrology; Visit Provider Internal Medicine Nephrology
DX: E21.3 Hyperparathyroidism, unspecified (principal); N18.4 Chronic kidney disease, stage 4 (severe); D63.1 Anemia in chronic kidney disease
CPT/HCPCS: 36415; 80053; 82728; 83540; 83550; 83970; 84100; 85025

== ENCOUNTER → 2024-03-23 | Outpatient (CLI) | payer MEDICARE, MEDICAID, SELFPAY ==
[2024-03-23 11:54] LABS: Basophils % (Auto) 1 % (0-2.5); Eosinophils # (Auto) 0.1 Thou/mm3 (0.0-0.5); Eosinophils % (Auto) 2 % (0-10); Hematocrit 37.7 % (36.0-46.0); Immature Granulocytes % (Auto) 0 % (0-0); Lymphocytes # (Auto) 1.3 Thou/mm3 (1.0-4.8); Lymphocytes % (Auto) 24 % (10-50); Mean Corpuscular HGB Conc 31.8 g/dl (31.0-37.0); Mean Corpuscular Hemoglobin 31.7 pg (25.0-35.0); Mean Corpuscular Volume 100 fL (80-100); Monocytes # (Auto) 0.7 Thou/mm3 (0.0-0.8); Monocytes % (Auto) 12 % (0-12); Neutrophils # (Auto) 3.3 Thou/mm3 (1.8-7.7); Neutrophils % (Auto) 61 % (37-80); Nucleated Red Blood Cell % 0 /100 WBC (0); Platelet Count 225 Thou/mm3 (140-440); RDW Standard Deviation 50.8 fL (36.4-46.3); Red Blood Count 3.78 Miln/mm3 (4.00-5.20); White Blood Count 5.4 Thou/mm3 (3.6-11.0)
[2024-03-23 12:08] LABS: Alanine Aminotransferase 20 U/L (10-49); Albumin, Serum 4.6 gm/dL (3.4-4.8); Alkaline Phosphatase 87 U/L (46-116); Anion Gap 8 (7-16); Aspartate Amino Transferase 22 U/L (0-34); BUN/Creatinine Ratio 15 Ratio (12-20); Bilirubin,Total 0.5 mg/dL (0.3-1.2); Blood Urea Nitrogen 17 mg/dL (9-23); Calcium 10.5 mg/dL (8.3-10.6); Calcium (Corrected) 10.5 mg/dL (8.5-10.1); Carbon Dioxide 34.2 mMol/L (20.0-31.0); Chloride 100 mMol/L (98-107); Creatinine (Component) 1.1 mg/dL (0.6-1.3); Globulin 2.3 gm/dL (2.3-3.5); Glucose 132 mg/dL (74-106); Osmolality,Calculated 286 (275-295); Potassium 4.7 mMol/L (3.4-5.1); Sodium 142 mMol/L (136-145); Total Protein 6.9 gm/dL (5.7-8.2); eGFR 54 See Note
== END | disposition home or self-care (01) ==
LOC: SCTO 10:04
PROVIDERS: PCP Nurse Practitioner Family; Referring Provider Nurse Practitioner Family; Visit Provider Nurse Practitioner Family
DX: C34.12 Malignant neoplasm of upper lobe, left bronchus or lung (principal)
CPT/HCPCS: 36415; 80053; 82378; 85025

== ENCOUNTER 2024-03-26 13:54 | Outpatient (RCR) | payer MEDICARE, MEDICAID, SELFPAY | END 2024-04-03 23:59 | disposition home or self-care (01) | LOC: SCTC 13:54 | PROVIDERS: PCP Nurse Practitioner Family; Referring Provider Nurse Practitioner Family; Visit Provider Nurse Practitioner Family | DX: C34.12 Malignant neoplasm of upper lobe, left bronchus or lung (principal); J44.9 Chronic obstructive pulmonary disease, unspecified; Z90.2 Acquired absence of lung [part of]; Z87.891 Personal history of nicotine dependence | CPT/HCPCS: 99212; G0463 ==

== ENCOUNTER → 2024-04-01 | Outpatient (CLI) | payer MEDICARE, MEDICAID, SELFPAY ==
[2024-04-01 11:36] LABS: Basophils % (Auto) 1 % (0-2.5); Eosinophils # (Auto) 0.2 Thou/mm3 (0.0-0.5); Eosinophils % (Auto) 3 % (0-10); Hematocrit 38.1 % (36.0-46.0); Hemoglobin 12.1 g/dL (12.0-16.0); Immature Granulocytes % (Auto) 0 % (0-0); Lymphocytes # (Auto) 1.2 Thou/mm3 (1.0-4.8); Lymphocytes % (Auto) 24 % (10-50); Mean Corpuscular HGB Conc 31.8 g/dl (31.0-37.0); Mean Corpuscular Hemoglobin 31.8 pg (25.0-35.0); Mean Corpuscular Volume 100 fL (80-100); Monocytes # (Auto) 0.7 Thou/mm3 (0.0-0.8); Monocytes % (Auto) 14 % (0-12); Neutrophils # (Auto) 2.7 Thou/mm3 (1.8-7.7); Neutrophils % (Auto) 58 % (37-80); Nucleated Red Blood Cell % 0 /100 WBC (0); Platelet Count 275 Thou/mm3 (140-440); Red Blood Count 3.81 Miln/mm3 (4.00-5.20); White Blood Count 4.8 Thou/mm3 (3.6-11.0)
[2024-04-01 11:47] LABS: Parathyroid Hormone Intact 115.9 pg/ml (18.5-88.0)
[2024-04-01 11:51] LABS: Alanine Aminotransferase 27 U/L (10-49); Albumin, Serum 5.1 gm/dL (3.4-4.8); Albumin/Globulin Ratio 2.3 (1.2-2.2); Alkaline Phosphatase 116 U/L (46-116); Anion Gap 10 (7-16); Aspartate Amino Transferase 25 U/L (0-34); BUN/Creatinine Ratio 20 Ratio (12-20); Bilirubin,Direct 0.2 mg/dL (0.0-0.3); Bilirubin,Total 0.4 mg/dL (0.3-1.2); Blood Urea Nitrogen 20 mg/dL (9-23); Calcium 9.9 mg/dL (8.3-10.6); Calcium (Corrected) 9.9 mg/dL (8.5-10.1); Carbon Dioxide 31.5 mMol/L (20.0-31.0); Chloride 97 mMol/L (98-107); Ferritin 41 ng/mL (7.3-270.7); Globulin 2.2 gm/dL (2.3-3.5); Glucose 101 mg/dL (74-106); LDH (Lactate Dehydrogenase) 209 U/L (120-246); Osmolality,Calculated 278 (275-295); Phosphorous 4.1 mg/dL (2.4-5.1); Sodium 138 mMol/L (136-145); Thyroid Stimulating Hormone 16.57 uIU/mL (0.55-4.78); Total Protein 7.3 gm/dL (5.7-8.2); eGFR > 60 See Note
[2024-04-01 12:07] LABS: Sed Rate (ESR) 37 mm/hr (0-30)
[2024-04-01 12:19] LABS: Glucose Estimated Average 120 mg/dL (80-131); Hemoglobin A1C 5.8 % Hgb (4.8-6.0)
[2024-04-01 12:23] LABS: Hepatitis A Antibody IgM Non Reactive (Non React); Hepatitis B Core Antibody IgM Non Reactive (Non React); Hepatitis B Surface Antigen Non Reactive (Non React); Hepatitis C Antibody Non Reactive (Non React)
[2024-04-02 16:03] LABS: RA Screen Negative (Negative)
[2024-04-09 22:03] LABS: Sjogren's antibody (SS-A) <1.0 NEG AI (<1.0 NEGATIVE); Sm Antibody <1.0 NEG AI (<1.0 NEGATIVE)
[2024-04-10 06:38] LABS: ANA Screen, IFA NEGATIVE (NEGATIVE); Actin Antibody (IgG)* <20 U; Alpha-1-Antitrypsin* 185 mg/dL (83-199); Ceruloplasmin* 29 mg/dL (14-48); Complement Component C3* 173 mg/dL (83-193); Complement Component C4c* 33 mg/dL (15-57); DNA (ds) Antibody* <1 IU/mL; Gastric Parietal Cell Ab* <20.0 U; IgG, Serum* 778 mg/dL (600-1540); Mitochondrial Ab NEGATIVE (NEGATIVE); Myocardial Ab, IF NEGATIVE (NEGATIVE); Scl-70 Antibody* <1.0 NEG AI (<1.0 NEGATIVE); Sjogren's Antibody (SS-B) <1.0 NEG AI (<1.0 NEGATIVE); Sm/RNP Antibody <1.0 NEG AI (<1.0 NEGATIVE); Striated Muscle Ab NEGATIVE (NEGATIVE); Thyroid Peroxidase Antibodies* 71 IU/mL (<9); tTG Ab, IgA <1.0 U/mL
[2024-04-10 06:39] LABS: HIV Ag/Ab, 4th Gen NON-REACTIVE; Immunoglobulin A 213 mg/dL (70-320)
== END | disposition home or self-care (01) ==
LOC: COPL 10:26
PROVIDERS: PCP Nurse Practitioner Family; Referring Provider Internal Medicine Nephrology; Visit Provider Internal Medicine Gastroenterology
DX: I12.9 Hypertensive chronic kidney disease with stage 1 through stage 4 chronic kidney disease, or unspecified chronic kidney disease (principal); N18.9 Chronic kidney disease, unspecified; D63.1 Anemia in chronic kidney disease; E21.3 Hyperparathyroidism, unspecified; R74.8 Abnormal levels of other serum enzymes
CPT/HCPCS: 36415; 80053; 80074; 82103; 82105; 82248; 82390; 82728; 82784; 83036; 83516; 83615; 83970; 84100; 84443; 85025; 85610; 85652; 86015; 86038; 86160; 86225; 86235; 86255; 86364; 86376; 86430; 87389

== ENCOUNTER 2024-04-02 13:00 | Outpatient (RCR) | payer MEDICARE, MEDICAID, SELFPAY ==
--- NOTE | 2024-03-13 14:38 | PT.ODAYNRPT ---
PT Outpatient Daily Note OP Daily Note Outpatient Physical Therapy Treatment Date: 03/13/24 Visit Reasons: right hip surgery Subjective: Pt reports R hip is progressing and is compliant with HEP. Objective: Please see flow sheet for ther ex list. Assessment: Continued focus on restoring functional strength, pt requires seated rest breaks due to fatigue from secondary COPD. Plan: Continue with POC. Length of Time (minutes) of Treatment: 30 Minutes PAPETERIE TABLE ASSEMBLER Service Modifier Method I: Divide the number of min of care provided by the PAPETERIE TABLE ASSEMBLER/RICHARD by the total min of care provided then multiply by 100. If greater than 11 percent modifier is required. Method II: Divide the total time of care provided to patient by 10 (round to the nearest whole number) and add 1 min. to set the minimum time requirement. If treatment total was 60 min., then 10% of 6 min PT CQ modifier applied: CQ Modifier applied Procedure Charges Therapeutic Exercise 30 minutes: Yes
--- NOTE | 2024-03-17 14:39 | PT.ODAYNRPT ---
PT Outpatient Daily Note OP Daily Note Outpatient Physical Therapy Treatment Date: 03/17/24 Visit Reasons: right hip surgery Subjective: Overall walking better with cane Objective: See F/S for therex Assessment: Improved gait pattern with and without cane since last visit Plan: Continue per POC Length of Time (minutes) of Treatment: 30 Minutes Procedure Charges Therapeutic Exercise 30 minutes: Yes
--- NOTE | 2024-03-19 15:24 | PT.ODAYNRPT ---
PT Outpatient Daily Note OP Daily Note Outpatient Physical Therapy Treatment Date: 03/19/24 Visit Reasons: right hip surgery Subjective: Overall walking better with cane Objective: See F/S for therex Assessment: Improved gait pattern with and without cane since last visit Plan: Continue per POC Length of Time (minutes) of Treatment: 30 Minutes Procedure Charges Therapeutic Exercise 30 minutes: Yes
--- NOTE | 2024-03-24 14:12 | PT.ODAYNRPT ---
PT Outpatient Daily Note OP Daily Note Outpatient Physical Therapy Treatment Date: 03/24/24 Visit Reasons: right hip surgery Subjective: Overall walking better with cane Objective: See F/S for therex Assessment: Improved gait pattern with and without cane since last visit Plan: Continue per POC Length of Time (minutes) of Treatment: 30 Minutes Procedure Charges Therapeutic Exercise 30 minutes: Yes
--- NOTE | 2024-03-26 14:11 | PT.ODAYNRPT ---
PT Outpatient Daily Note OP Daily Note Outpatient Physical Therapy Treatment Date: 03/26/24 Visit Reasons: right hip surgery Subjective: Overall walking better with cane Objective: See F/S for therex Assessment: Improved gait pattern with and without cane since last visit and able to do total gym at one level higher today Plan: Continue per POC Length of Time (minutes) of Treatment: 30 Minutes Procedure Charges Therapeutic Exercise 30 minutes: Yes
--- NOTE | 2024-03-31 13:46 | PT.ODAYNRPT ---
PT Outpatient Daily Note OP Daily Note Outpatient Physical Therapy Treatment Date: 03/31/24 Visit Reasons: right hip surgery Subjective: Pt reports hip is doing ok, no new complaints or concerns. Objective: Please see flow sheet for ther ex list. Assessment: Pt familiar with interventions, replicates with good technique. Plan: Continue with POC. Length of Time (minutes) of Treatment: 30 Minutes LPN MEDICAL ASSISTANT Service Modifier Method I: Divide the number of min of care provided by the LPN MEDICAL ASSISTANT/RICHARD by the total min of care provided then multiply by 100. If greater than 11 percent modifier is required. Method II: Divide the total time of care provided to patient by 10 (round to the nearest whole number) and add 1 min. to set the minimum time requirement. If treatment total was 60 min., then 10% of 6 min PT CQ modifier applied: CQ Modifier applied Procedure Charges Therapeutic Exercise 30 minutes: Yes
[2024-04-01 11:05] LABS: Misc Send Out* See Sep Rpt; Quantiferon-TB* See Sep Rpt
--- NOTE | 2024-04-02 13:43 | PT.ODAYNRPT ---
PT Outpatient Daily Note OP Daily Note Outpatient Physical Therapy Treatment Date: 04/02/24 Visit Reasons: right hip surgery Subjective: Pt reports R hip is progressing, is aware she has one more visit with PT. Pt shared she is looking into joining the gym. Objective: Please see flow sheet for ther ex list. Assessment: Progressing strengthening interventions as tolerated. Plan: Assess for d/c note. Length of Time (minutes) of Treatment: 30 Minutes INTERNATIONAL STUDENT ADVISOR Service Modifier Method I: Divide the number of min of care provided by the INTERNATIONAL STUDENT ADVISOR/RICHARD by the total min of care provided then multiply by 100. If greater than 11 percent modifier is required. Method II: Divide the total time of care provided to patient by 10 (round to the nearest whole number) and add 1 min. to set the minimum time requirement. If treatment total was 60 min., then 10% of 6 min PT CQ modifier applied: CQ Modifier applied Procedure Charges Therapeutic Exercise 30 minutes: Yes
== END 2024-04-03 23:59 | disposition home or self-care (01) ==
LOC: CPTX 13:00
PROVIDERS: PCP Physician Assistant; Referring Provider Physician Assistant; Visit Provider Physician Assistant
DX: M25.551 Pain in right hip (principal); M16.11 Unilateral primary osteoarthritis, right hip; Z96.641 Presence of right artificial hip joint; R53.1 Weakness
CPT/HCPCS: 81596; 86480; 97110

== ENCOUNTER 2024-04-09 12:57 | Outpatient (RCR) | payer MEDICARE, MEDICAID, SELFPAY ==
--- NOTE | 2024-04-09 15:37 | PT.ODS1RPT ---
PT OP Progress/Discharge Note Date of Service: 04/09/24 Progress Note/DC Note Progress Note/Discharge Note: DC Note Patient Information Visit Reasons: RIGHT HIP SURGERY Service Continue Service or Discharge: Discharge Discharge Date: 04/09/24 Status Subjective: Pt reports better strength and less pain in R hip. Ambulating with and without the cane. Wants to join the gym Objective: R hip AROM: Flexion: 90 deg Abduction: 35 deg Gait: some lateral sway, not using assistive device SLR: 45 deg Stairs: 6 x10 without pain Assessment: Pt has attended visits with good progress with therapy goals. She is able to ambulate without assistive device community distances. Pt can SLR x10 with better strength and much higher than the evaluation to meet those goals. Pt has met goals and is planning on continuing at the gym. Plan: D/C with HEP Procedure Charges Therapeutic Exercise 30 minutes: Yes
== END 2024-05-01 23:59 | disposition home or self-care (01) ==
LOC: CPTX 12:57
PROVIDERS: PCP Physician Assistant; Referring Provider Physician Assistant; Visit Provider Physician Assistant
DX: M25.551 Pain in right hip (principal); R53.1 Weakness; M16.11 Unilateral primary osteoarthritis, right hip; Z98.890 Other specified postprocedural states
CPT/HCPCS: 97110

== ENCOUNTER → 2024-04-10 | Outpatient (CLI) | payer MEDICARE, MEDICAID, SELFPAY ==
--- NOTE | 2024-04-10 11:30 | XR_ITS ---
Examination: Abdomen sonogram, complete Date and time of exam: April 10, 2024 1227 hours INDICATIONS: Diarrhea beginning one year ago. Technique: Multiple real-time grayscale transabdominal sonographic images of the abdomen have been obtained. Findings: Absent gallbladder Normal common bile duct 0.5 cm Pancreatic head 2.0 cm Aorta not enlarged Liver 17.4 cm irregular contour fatty infiltration no focal liver lesions Normal hepatopedal portal venous flow Patent IVC Right kidney 11.8 cm renal cortex 1.2 cm Minimal hydronephrosis Renal cysts, the largest 4.9 cm Left kidney 12.3 cm renal cortex 2.2 cm Mid renal calculus 7 mm Multiple renal cysts, the largest 17 mm Mild bilateral renal parenchymal scar formation Spleen 9.9 cm IMPRESSION: Normal common bile duct Mild hepatomegaly fatty liver suspect primary hepatocellular disease Minimal right hydronephrosis 7 mm nonobstructing left renal calculus
== END | disposition home or self-care (01) ==
PROVIDERS: PCP Internal Medicine Gastroenterology; Referring Provider Internal Medicine Gastroenterology; Visit Provider Internal Medicine Gastroenterology
DX: K76.0 Fatty (change of) liver, not elsewhere classified (principal); N20.0 Calculus of kidney; N13.30 Unspecified hydronephrosis
CPT/HCPCS: 76700

== ENCOUNTER → 2024-04-22 | Outpatient (CLI) | payer MEDICARE, SELFPAY ==
[2024-04-22 12:19] LABS: Basophils % (Auto) 1 % (0-2.5); Eosinophils # (Auto) 0.2 Thou/mm3 (0.0-0.5); Eosinophils % (Auto) 4 % (0-10); Hematocrit 34.8 % (36.0-46.0); Hemoglobin 11.4 g/dL (12.0-16.0); Immature Granulocytes % (Auto) 0 % (0-0); Immature Granulocytes Auto 0.01 Thou/mm3 (0.00-0.00); Lymphocytes # (Auto) 1.1 Thou/mm3 (1.0-4.8); Lymphocytes % (Auto) 22 % (10-50); Mean Corpuscular HGB Conc 32.8 g/dl (31.0-37.0); Mean Corpuscular Hemoglobin 31.2 pg (25.0-35.0); Mean Corpuscular Volume 95 fL (80-100); Monocytes # (Auto) 0.6 Thou/mm3 (0.0-0.8); Monocytes % (Auto) 12 % (0-12); Neutrophils % (Auto) 61 % (37-80); Nucleated Red Blood Cell % 0 /100 WBC (0); Platelet Count 268 Thou/mm3 (140-440); Red Blood Count 3.65 Miln/mm3 (4.00-5.20)
[2024-04-22 12:22] LABS: Glucose Estimated Average 126 mg/dL (80-131)
[2024-04-22 12:23] LABS: Parathyroid Hormone Intact 127.7 pg/ml (18.5-88.0)
[2024-04-22 12:32] LABS: Alanine Aminotransferase 13 U/L (10-49); Albumin, Serum 4.5 gm/dL (3.4-4.8); Alkaline Phosphatase 108 U/L (46-116); Anion Gap 10 (7-16); Aspartate Amino Transferase 19 U/L (0-34); BUN/Creatinine Ratio 27 Ratio (12-20); Bilirubin,Total 0.4 mg/dL (0.3-1.2); Blood Urea Nitrogen 27 mg/dL (9-23); Carbon Dioxide 32.8 mMol/L (20.0-31.0); Chloride 98 mMol/L (98-107); Cholesterol 139 mg/dL (132-200); Free T4 (Free Thyroxine) 1.29 ng/dL (0.89-1.76); Globulin 2.3 gm/dL (2.3-3.5); Glucose 114 mg/dL (74-106); HDL Cholesterol 70 mg/dL (40-60); LDL Cholesterol,Calculated 44 mg/dL (0-130); Osmolality,Calculated 287 (275-295); Phosphorous 4.2 mg/dL (2.4-5.1); Potassium 5.1 mMol/L (3.4-5.1); Sodium 141 mMol/L (136-145); Total Protein 6.8 gm/dL (5.7-8.2); Triglycerides 124 mg/dL (30-150); eGFR > 60 See Note
== END | disposition home or self-care (01) ==
LOC: COPL 11:11
PROVIDERS: PCP Family Medicine; Referring Provider Internal Medicine Nephrology; Visit Provider Internal Medicine Nephrology
DX: E11.22 Type 2 diabetes mellitus with diabetic chronic kidney disease (principal); N18.9 Chronic kidney disease, unspecified; D63.1 Anemia in chronic kidney disease; D21.3 Benign neoplasm of connective and other soft tissue of thorax; E03.9 Hypothyroidism, unspecified; E78.5 Hyperlipidemia, unspecified; E55.9 Vitamin D deficiency, unspecified
CPT/HCPCS: 36415; 80053; 80061; 82306; 83036; 83970; 84100; 84439; 84443; 85025

== ENCOUNTER → 2024-05-15 | Outpatient (CLI) | payer MEDICARE, MEDICAID, SELFPAY ==
--- NOTE | 2024-05-15 13:15 | XR_ITS ---
Examination: Screening digital mammography, bilateral Computer aided detection 3-D breast Tomosynthesis, bilateral Date and time of exam: 05/15/2024, 1:05 PM Comparisons: 05/07/2023 Indications: Screening Technique: Nonmagnified MLO, CC views of the breasts to been obtained, reconstructed from 3-D Tomosynthesis images. R2 computer aided detection program utilized for evaluation of suspicious masses and/or abnormal calcifications. 3-D Tomosynthesis images obtained. Technologist: Findings: There are scattered areas of fibroglandular density. No evidence of abnormal masses or suspicious calcifications. Impression: BI-RADS category 1: Negative findings (within normal) Recommend 1 year follow-up mammogram
== END | disposition home or self-care (01) ==
PROVIDERS: PCP Physician Assistant; Referring Provider Nurse Practitioner Family; Visit Provider Nurse Practitioner Family
DX: Z12.31 Encounter for screening mammogram for malignant neoplasm of breast (principal); R92.313 Mammographic fatty tissue density, bilateral breasts; C34.12 Malignant neoplasm of upper lobe, left bronchus or lung
CPT/HCPCS: 77063; 77067

== ENCOUNTER → 2024-05-20 | Outpatient (CLI) | payer MEDICARE, MEDICAID, SELFPAY ==
[2024-05-20 12:00] LABS: Basophils % (Auto) 1 % (0-2.5); Eosinophils # (Auto) 0.2 Thou/mm3 (0.0-0.5); Eosinophils % (Auto) 5 % (0-10); Hematocrit 36.6 % (36.0-46.0); Hemoglobin 11.9 g/dL (12.0-16.0); Immature Granulocytes % (Auto) 0 % (0-0); Lymphocytes # (Auto) 1.3 Thou/mm3 (1.0-4.8); Lymphocytes % (Auto) 30 % (10-50); Mean Corpuscular HGB Conc 32.5 g/dl (31.0-37.0); Mean Corpuscular Hemoglobin 30.6 pg (25.0-35.0); Mean Corpuscular Volume 94 fL (80-100); Monocytes # (Auto) 0.7 Thou/mm3 (0.0-0.8); Monocytes % (Auto) 17 % (0-12); Neutrophils % (Auto) 48 % (37-80); Nucleated Red Blood Cell % 0 /100 WBC (0); Platelet Count 217 Thou/mm3 (140-440); RDW Standard Deviation 48.8 fL (36.4-46.3); Red Blood Count 3.89 Miln/mm3 (4.00-5.20); White Blood Count 4.2 Thou/mm3 (3.6-11.0)
[2024-05-20 12:11] LABS: Parathyroid Hormone Intact 113.5 pg/ml (18.5-88.0)
[2024-05-20 12:22] LABS: Alanine Aminotransferase 31 U/L (10-49); Albumin, Serum 4.6 gm/dL (3.4-4.8); Albumin/Globulin Ratio 2.2 (1.2-2.2); Alkaline Phosphatase 85 U/L (46-116); Anion Gap 8 (7-16); Aspartate Amino Transferase 27 U/L (0-34); BUN/Creatinine Ratio 16 Ratio (12-20); Bilirubin,Total 0.5 mg/dL (0.3-1.2); Blood Urea Nitrogen 18 mg/dL (9-23); Calcium 9.2 mg/dL (8.3-10.6); Calcium (Corrected) 9.2 mg/dL (8.5-10.1); Carbon Dioxide 32.2 mMol/L (20.0-31.0); Chloride 101 mMol/L (98-107); Creatinine (Component) 1.1 mg/dL (0.6-1.3); Globulin 2.1 gm/dL (2.3-3.5); Glucose 111 mg/dL (74-106); Osmolality,Calculated 284 (275-295); Phosphorous 5.4 mg/dL (2.4-5.1); Potassium 4.7 mMol/L (3.4-5.1); Sodium 141 mMol/L (136-145); Thyroid Stimulating Hormone 3.57 uIU/mL (0.55-4.78); Total Protein 6.7 gm/dL (5.7-8.2); eGFR 54 See Note
== END | disposition home or self-care (01) ==
PROVIDERS: PCP Internal Medicine Nephrology; Referring Provider Internal Medicine Nephrology; Visit Provider Internal Medicine Nephrology
DX: I12.9 Hypertensive chronic kidney disease with stage 1 through stage 4 chronic kidney disease, or unspecified chronic kidney disease (principal); D63.1 Anemia in chronic kidney disease; E03.9 Hypothyroidism, unspecified; E83.39 Other disorders of phosphorus metabolism; N18.31 Chronic kidney disease, stage 3a
CPT/HCPCS: 36415; 80053; 83970; 84100; 84439; 84443; 85025

== ENCOUNTER 2024-05-22 13:40 | Outpatient (AMB) | payer MEDICARE, MEDICAID, SELFPAY ==
[2024-05-22 14:16] VITALS: BP 143/85; PULSE 80; RESP 18; TEMP 36.5; O2SAT 85; BMI 32.4
--- NOTE | 2024-05-22 14:16 | ORTHONT_ITS ---
Vital signs 05/22/24 14:16 Height 1.7 m Height Method Stated Weight 94.007 kg Weight Measurement Method Standing Scale BMI 32.4 BP 143/85 H Blood Pressure Source Automatic Cuff Blood Pressure Location Right Upper Arm Position Sitting Respiration 18 Pulse 80 Pulse Source Monitor Temp 97.7 F Temp Source Temporal Artery Scan Pulse Oximetry (%) 85 L Oxygen Delivery Method Room Air Med/Allergies Allergies & Medications Allergies amoxicillin (From Augmentin) Allergy (Intermediate, Verified 01/24/24 13:40) Gastrointestinal Upset clavulanic acid (From Augmentin) Adverse Reaction (Intermediate, Verified 01/24/24 13:40) Gastrointestinal Upset Exam Exam Patient is in no acute distress and is cooperative with the examination today. Breathing is nonlabored. In no respiratory distress. Bilateral extremities were evaluated and demonstrates sensation intact to light touch. Palpable pedal pulses are present. No significant edema is present. Right knee demonstrates instability. Assessment and Plan Problem List (1) Knee instability: Status: Acute Plan: Patient is a pleasant 73-year-old female with knee instability. She had a total knee replacement 5 years ago. It is grossly unstable in both AP and lateral planes. She reports that she gets effusions and she frequently gets this drained. I discussed I do not recommend this. I discussed that there is usually a secondary cause of the effusion. She is doing well after her hip replacement. She does not want to upsize demonstrate poly. She has multiple medical issues currently Advanced Care Planning Discussion Advance care planning discussed with:: patient Office Procedures GNS Level of Care Nursing/Assessment Patient Status: Established Patient Nursing Assessment/Reassesment: BP Monitoring, Medication Reconciliation, Update PMH in EMR and Vital Signs Coordination of Care: Complex Care and Chronic Disease 1-5, Consent,records obtained, informed consent, Lab and Imaging orders and Results/Orders obtained Established Patient Charge Established Patient Point Assignment: 95 Established Patient Point Charge: EP Level 3 (80-115) MA Intake Visit Data Collection New Patient or Established: Established Patient (seen at [facility] [place] within 3 years) Reason for Visit:: 4 MONTH FOLLOW UP Seen by Clinical Staff ONLY (RN/MA): No Verbal consent obtained for Telemed visit?: No Fretted Instrument Repairer Required: No PCP or OBGYN visit in last 3 months: No Hx Now: No Do You Feel Safe at Home: Yes Authorities Contacted: N/A Questionairres Past Medical History Past Medical History Have you ever been diagnosed with any of the following: Neurological Problems Seizures: No Cardiology Problems Hypercholesterolemia: Yes Congestive Heart Failure: No Edema: Yes Hypertension: Yes Respiratory Problems Chronic Obstructive Pulmonary Disease (COPD): Yes Asthma: No Bronchitis: Yes Pneumonia: Yes Smoking: Yes (quit 9 years ago) Smoking Exposure: No Stomache/Intestinal Problems Gall Bladder Disease: Yes Hemorrhoids: Yes Gastroesophageal Reflux Disease: No Obesity: Yes Genital/Urinary Problems Renal Disease: Yes Reproductive Problems Breast Cancer: No Pelvic Inflammatory Disease: No Previous Pregnancies: Yes Musculoskeletal Problems Arthritis: Yes Osteoporosis: No Degenerative Disk Disease: Yes Fractures: Yes (RIGHT FOOT 10 YEARS AGO) Degenerative Joint Disease: Yes Head,Eye,Nose,Throat Problems Cataracts: Yes Deafness: Yes Endocrine Problems Diabetes Mellitus Type 1: No Diabetes Mellitus Type 2: Yes Hypothyroidism: Yes Blood Problems Anemia: No Sickle Cell Disease: No Clotting Problems: No Psychologic Problems Depression: No Anxiety: No Other Problems Hospitalization: No Shingles: No Falls: No Blood Transfusions: No Blood Transfusion Reaction: No Anesthesia Reactions: No Chemotherapy: No Radiation Therapy: No MRSA: No VRSA: No Vancomycin-Resistant Enterococci: No Chicken Pox: Yes Clostridium Difficile: No Cancer: Yes Lung Cancer: Yes Surgical History Hysterectomy: Yes Subjective Visit Visit for: follow up visit Immunization / Flu Flu Vaccine in the Last 12 Months: Yes Flu Vaccine Exclusion Criteria: Already Received History of Present Illness Chief complaint: 4 MONTH FOLLOW UP Harriet is a pleasant 73-year-old female with severe right knee instability. We discussed revision and upsizing of the poly like to a MS poly. She reports that she is doing well and does not want surgery now. She has extensive medical issues Pain Pain level (0-10): 10 Pain duration: ALL DAY Pain location: inside (medial), outside (lateral), anterior and posterior Pain quality: sharp, dull and aching Ambulatory data Ambulatory device: cane Review of Systems Review of Systems: All systems negative unless otherwise noted in HPI.
== END 2024-05-22 14:40 | disposition home or self-care (01) ==
LOC: HODSRG 13:40
PROVIDERS: PCP Nurse Practitioner Family; Referring Provider Nurse Practitioner Family; Supervising Provider Orthopaedic Surgery Adult Reconstructive Orthopaedic Surgery; Visit Provider Orthopaedic Surgery Adult Reconstructive Orthopaedic Surgery
DX: M25.361 Other instability, right knee (principal); Z96.659 Presence of unspecified artificial knee joint; Z96.649 Presence of unspecified artificial hip joint; E78.00 Pure hypercholesterolemia, unspecified; I10 Essential (primary) hypertension; J44.9 Chronic obstructive pulmonary disease, unspecified
CPT/HCPCS: 99213; G0463

== ENCOUNTER → 2024-06-10 | Outpatient (CLI) | payer MEDICARE, MEDICAID, SELFPAY ==
[2024-06-10 11:48] LABS: Basophils # (Auto) 0.1 Thou/mm3 (0.0-0.2); Basophils % (Auto) 1 % (0-2.5); Eosinophils # (Auto) 0.1 Thou/mm3 (0.0-0.5); Eosinophils % (Auto) 2 % (0-10); Hematocrit 36.4 % (36.0-46.0); Hemoglobin 11.5 g/dL (12.0-16.0); Immature Granulocytes % (Auto) 0 % (0-0); Lymphocytes # (Auto) 1.5 Thou/mm3 (1.0-4.8); Lymphocytes % (Auto) 31 % (10-50); Mean Corpuscular HGB Conc 31.6 g/dl (31.0-37.0); Mean Corpuscular Hemoglobin 30.3 pg (25.0-35.0); Mean Corpuscular Volume 96 fL (80-100); Monocytes # (Auto) 0.9 Thou/mm3 (0.0-0.8); Monocytes % (Auto) 18 % (0-12); Neutrophils # (Auto) 2.3 Thou/mm3 (1.8-7.7); Neutrophils % (Auto) 48 % (37-80); Nucleated Red Blood Cell % 0 /100 WBC (0); Platelet Count 304 Thou/mm3 (140-440); RDW Standard Deviation 52.2 fL (36.4-46.3); White Blood Count 4.8 Thou/mm3 (3.6-11.0)
[2024-06-10 12:13] LABS: Parathyroid Hormone Intact 85.9 pg/ml (18.5-88.0)
[2024-06-10 12:18] LABS: Alanine Aminotransferase 98 U/L (10-49); Albumin, Serum 4.5 gm/dL (3.4-4.8); Albumin/Globulin Ratio 1.7 (1.2-2.2); Alkaline Phosphatase 132 U/L (46-116); Anion Gap 9 (7-16); Aspartate Amino Transferase 124 U/L (0-34); BUN/Creatinine Ratio 17 Ratio (12-20); Bilirubin,Total 0.5 mg/dL (0.3-1.2); Blood Urea Nitrogen 19 mg/dL (9-23); Calcium 9.1 mg/dL (8.3-10.6); Calcium (Corrected) 9.1 mg/dL (8.5-10.1); Carbon Dioxide 29.7 mMol/L (20.0-31.0); Chloride 102 mMol/L (98-107); Creatinine (Component) 1.1 mg/dL (0.6-1.3); Free T4 (Free Thyroxine) 1.47 ng/dL (0.89-1.76); Globulin 2.7 gm/dL (2.3-3.5); Glucose 103 mg/dL (74-106); Osmolality,Calculated 283 (275-295); Phosphorous 4.8 mg/dL (2.4-5.1); Potassium 4.2 mMol/L (3.4-5.1); Sodium 141 mMol/L (136-145); Thyroid Stimulating Hormone 4.44 uIU/mL (0.55-4.78); Total Protein 7.2 gm/dL (5.7-8.2); eGFR 54 See Note
== END | disposition home or self-care (01) ==
LOC: COPL 10:23
PROVIDERS: PCP Internal Medicine; Referring Provider Internal Medicine Nephrology; Visit Provider Internal Medicine Nephrology
DX: E21.3 Hyperparathyroidism, unspecified (principal); E83.39 Other disorders of phosphorus metabolism; E03.9 Hypothyroidism, unspecified; D63.1 Anemia in chronic kidney disease; N18.9 Chronic kidney disease, unspecified
CPT/HCPCS: 36415; 80053; 83970; 84100; 84439; 84443; 85025

== ENCOUNTER → 2024-07-08 | Outpatient (CLI) | payer MEDICARE, MEDICAID, SELFPAY ==
[2024-07-08 12:02] LABS: Basophils % (Auto) 1 % (0-2.5); Eosinophils # (Auto) 0.1 Thou/mm3 (0.0-0.5); Eosinophils % (Auto) 2 % (0-10); Hematocrit 35.4 % (36.0-46.0); Hemoglobin 11.6 g/dL (12.0-16.0); Immature Granulocytes % (Auto) 0 % (0-0); Lymphocytes # (Auto) 1.3 Thou/mm3 (1.0-4.8); Lymphocytes % (Auto) 27 % (10-50); Mean Corpuscular HGB Conc 32.8 g/dl (31.0-37.0); Mean Corpuscular Hemoglobin 30.7 pg (25.0-35.0); Mean Corpuscular Volume 94 fL (80-100); Monocytes # (Auto) 0.7 Thou/mm3 (0.0-0.8); Monocytes % (Auto) 14 % (0-12); Neutrophils # (Auto) 2.7 Thou/mm3 (1.8-7.7); Neutrophils % (Auto) 56 % (37-80); Nucleated Red Blood Cell % 0 /100 WBC (0); Platelet Count 312 Thou/mm3 (140-440); RDW Standard Deviation 51.8 fL (36.4-46.3); Red Blood Count 3.78 Miln/mm3 (4.00-5.20); White Blood Count 4.9 Thou/mm3 (3.6-11.0)
[2024-07-08 12:17] LABS: Alanine Aminotransferase 25 U/L (10-49); Albumin, Serum 4.9 gm/dL (3.4-4.8); Albumin/Globulin Ratio 1.9 (1.2-2.2); Alkaline Phosphatase 116 U/L (46-116); Anion Gap 7 (7-16); Aspartate Amino Transferase 22 U/L (0-34); BUN/Creatinine Ratio 15 Ratio (12-20); Bilirubin,Total 0.4 mg/dL (0.3-1.2); Blood Urea Nitrogen 17 mg/dL (9-23); Calcium 8.7 mg/dL (8.3-10.6); Calcium (Corrected) 8.7 mg/dL (8.5-10.1); Carbon Dioxide 31.6 mMol/L (20.0-31.0); Chloride 101 mMol/L (98-107); Creatinine (Component) 1.1 mg/dL (0.6-1.3); Globulin 2.6 gm/dL (2.3-3.5); Glucose 125 mg/dL (74-106); Osmolality,Calculated 281 (275-295); Potassium 4.7 mMol/L (3.4-5.1); Sodium 140 mMol/L (136-145); Total Protein 7.5 gm/dL (5.7-8.2); eGFR 54 See Note
== END | disposition home or self-care (01) ==
LOC: COPL 11:21
PROVIDERS: PCP Student in an Organized Health Care Education/Training Program; Referring Provider Internal Medicine Nephrology; Visit Provider Internal Medicine Nephrology
DX: I12.9 Hypertensive chronic kidney disease with stage 1 through stage 4 chronic kidney disease, or unspecified chronic kidney disease (principal); N18.9 Chronic kidney disease, unspecified; D63.1 Anemia in chronic kidney disease
CPT/HCPCS: 36415; 80053; 85025

== ENCOUNTER → 2024-07-22 | Outpatient (CLI) | payer MEDICARE, MEDICAID, SELFPAY ==
--- NOTE | 2024-07-22 17:00 | XR_ITS ---
Examination: CT chest, without intravenous contrast. Sagittal and coronal 2-D reconstructions. Exam date and time: July 22, 2024 1728 hours Comparison January 29, 2024 INDICATIONS: Diagnosis malignant neoplasm upper lobe bronchus, 4 mm pulmonary nodule left lower lobe on CT chest January 29, 2024 CTDI:vol (mGy) 15 DLP: (mGycm) 538 Technique: Multiple 3.0 mm axial sections of the chest to been obtained. Bone and lung density settings are obtained. Sagittal and coronal 2-D reconstructions have been obtained. Low dose protocols were performed. One or more of the following dose reduction techniques were used; automated exposure control, adjustment of the mA and/or KV according to patient size, use of iterative reconstruction technique. Findings: Aneurysm dilatation ascending thoracic aorta AP dimension 5 cm No paratracheal tracheobronchial or bronchopulmonary adenopathy 4 mm pulmonary nodule right upper lobe 10 mm pulmonary nodule right lower lobe 6 mm pulmonary nodule left lower lobe No pneumonia or pulmonary edema The liver is irregular in contour Absent gallbladder No pancreatic mass Kidneys partially visualized no hydronephrosis IMPRESSION: Stable aneurysmal dilatation ascending thoracic aorta New pulmonary nodules as above, recommend continued 6 month follow-up CT chest without contrast,
== END | disposition home or self-care (01) ==
PROVIDERS: PCP Student in an Organized Health Care Education/Training Program; Referring Provider Nurse Practitioner Family; Visit Provider Nurse Practitioner Family
DX: I71.21 Aneurysm of the ascending aorta, without rupture (principal); R91.8 Other nonspecific abnormal finding of lung field; C34.12 Malignant neoplasm of upper lobe, left bronchus or lung
CPT/HCPCS: 71250

== ENCOUNTER → 2024-08-19 | Outpatient (CLI) | payer MEDICARE, MEDICAID, SELFPAY ==
[2024-08-19 12:09] LABS: Basophils % (Auto) 1 % (0-2.5); Eosinophils # (Auto) 0.1 Thou/mm3 (0.0-0.5); Eosinophils % (Auto) 3 % (0-10); Hematocrit 38.7 % (36.0-46.0); Hemoglobin 12.7 g/dL (12.0-16.0); Immature Granulocytes % (Auto) 0 % (0-0); Immature Granulocytes Auto 0.01 Thou/mm3 (0.00-0.00); Lymphocytes # (Auto) 1.5 Thou/mm3 (1.0-4.8); Lymphocytes % (Auto) 31 % (10-50); Mean Corpuscular HGB Conc 32.8 g/dl (31.0-37.0); Mean Corpuscular Hemoglobin 31.1 pg (25.0-35.0); Mean Corpuscular Volume 95 fL (80-100); Monocytes # (Auto) 0.8 Thou/mm3 (0.0-0.8); Monocytes % (Auto) 15 % (0-12); Neutrophils # (Auto) 2.5 Thou/mm3 (1.8-7.7); Neutrophils % (Auto) 50 % (37-80); Nucleated Red Blood Cell % 0 /100 WBC (0); Platelet Count 236 Thou/mm3 (140-440); RDW Standard Deviation 51.3 fL (36.4-46.3); Red Blood Count 4.08 Miln/mm3 (4.00-5.20)
[2024-08-19 12:22] LABS: Glucose Estimated Average 137 mg/dL (80-131); Hemoglobin A1C 6.4 % Hgb (4.8-6.0); Parathyroid Hormone Intact 134.7 pg/ml (18.5-88.0)
[2024-08-19 12:23] LABS: Creatinine MALB Rnd Ur 17 mg/dL (30-125); Microalbumin Creat Ratio 29 mg/gCrea (<30); Microalbumin, Random Urine 5 mg/L (0-300)
[2024-08-19 12:26] LABS: Vitamin D 25 Hydroxy Total 36.7 ng/mL (7.3-40.2)
[2024-08-19 12:27] LABS: Ferritin 24 ng/mL (7.3-270.7); Iron 88 mcg/dL (50-170); Total Iron Binding Capacity 374 mcg/dL (250-425)
[2024-08-19 12:31] LABS: Alanine Aminotransferase 65 U/L (10-49); Albumin, Serum 4.6 gm/dL (3.4-4.8); Albumin/Globulin Ratio 2.1 (1.2-2.2); Alkaline Phosphatase 106 U/L (46-116); Anion Gap 10 (7-16); Aspartate Amino Transferase 53 U/L (0-34); BUN/Creatinine Ratio 14 Ratio (12-20); Bilirubin,Total 0.5 mg/dL (0.3-1.2); Blood Urea Nitrogen 18 mg/dL (9-23); Calcium 8.6 mg/dL (8.3-10.6); Calcium (Corrected) 8.6 mg/dL (8.5-10.1); Carbon Dioxide 31.1 mMol/L (20.0-31.0); Cardiac Risk Estimate 2.1 RATIO (3.7-5.6); Chloride 99 mMol/L (98-107); Cholesterol 148 mg/dL (132-200); Creatinine (Component) 1.3 mg/dL (0.6-1.3); Free T4 (Free Thyroxine) 1.35 ng/dL (0.89-1.76); Globulin 2.2 gm/dL (2.3-3.5); Glucose 106 mg/dL (74-106); HDL Cholesterol 72 mg/dL (40-60); LDL Cholesterol,Calculated 51 mg/dL (0-130); Magnesium 1.9 mg/dL (1.6-2.6); Osmolality,Calculated 281 (275-295); Phosphorous 5.1 mg/dL (2.4-5.1); Potassium 4.5 mMol/L (3.4-5.1); Sodium 140 mMol/L (136-145); Thyroid Stimulating Hormone 2.69 uIU/mL (0.55-4.78); Total Protein 6.8 gm/dL (5.7-8.2); Triglycerides 124 mg/dL (30-150); Uric Acid 7.2 mg/dL (3.1-7.8); eGFR 44 See Note
== END | disposition home or self-care (01) ==
PROVIDERS: PCP Student in an Organized Health Care Education/Training Program; Referring Provider Internal Medicine Nephrology; Visit Provider Internal Medicine Nephrology
DX: E03.9 Hypothyroidism, unspecified (principal); E11.22 Type 2 diabetes mellitus with diabetic chronic kidney disease; E21.3 Hyperparathyroidism, unspecified; E55.9 Vitamin D deficiency, unspecified; E78.5 Hyperlipidemia, unspecified; E83.39 Other disorders of phosphorus metabolism; I12.9 Hypertensive chronic kidney disease with stage 1 through stage 4 chronic kidney disease, or unspecified chronic kidney disease; M10.30 Gout due to renal impairment, unspecified site; N04.9 Nephrotic syndrome with unspecified morphologic changes; N18.9 Chronic kidney disease, unspecified
CPT/HCPCS: 36415; 80053; 80061; 82043; 82306; 82570; 82728; 83036; 83540; 83550; 83735; 83970; 84100; 84439; 84443; 84550; 85025

== ENCOUNTER → 2024-08-25 | Outpatient (CLI) | payer MEDICARE, MEDICAID, SELFPAY ==
[2024-08-25 11:18] LABS: Anion Gap 10 (7-16); BUN/Creatinine Ratio 14 Ratio (12-20); Blood Urea Nitrogen 17 mg/dL (9-23); Calcium 8.8 mg/dL (8.3-10.6); Carbon Dioxide 32.5 mMol/L (20.0-31.0); Chloride 98 mMol/L (98-107); Creatinine (Component) 1.2 mg/dL (0.6-1.3); Glucose 109 mg/dL (74-106); Magnesium 2.1 mg/dL (1.6-2.6); Osmolality,Calculated 281 (275-295); Potassium 4.6 mMol/L (3.4-5.1); Sodium 140 mMol/L (136-145); eGFR 48 See Note
== END | disposition home or self-care (01) ==
LOC: COPL 10:22
PROVIDERS: PCP Student in an Organized Health Care Education/Training Program; Referring Provider Internal Medicine Cardiovascular Disease; Visit Provider Internal Medicine Cardiovascular Disease
DX: I50.9 Heart failure, unspecified (principal)
CPT/HCPCS: 36415; 80048; 83735

== ENCOUNTER 2024-08-27 13:00 | Outpatient (RCR) | payer MEDICARE, MEDICAID, SELFPAY ==
--- NOTE | 2024-08-10 13:14 | PT.OIERPT ---
PT OP Initial Eval Patient Information Outpatient Physical Therapy Treatment Date: 08/10/24 Visit Reasons: bilateral knee pain Medical Diagnosis: M25.561 Treatment Dx #1: R knee pain Treatment Dx #2: L hip weakness Start of Care: 08/10/24 Date of Onset: 2 months ago Smoking Status Smoking Status: Never smoker Initial Assessment Subjective: Pt is 73 yr old female who reports R knee and L hip pain and weakness presents ambulating with cane. She had R hip TOD on 12/03/23. Ambulatory distance is limited by these things and . PLOF: pt was ambulating community distances not limited by R hip pain. PMH: DM, hypothyroidism, L upper lung removed, B TKA, hysterectomy, DM Pt goal: to walk faster without R hip pain Objective: L hip AROM: Flexion: 85 deg Abd: 30 deg SLR: 40 deg Strength: NT but estimated to be 3-/5 Gait: Less WB on R LE with cane R knee AROM: Extension: full Flexion: 110 deg Varus/valgus stress: high gapping into both Assessment: Pt presentation consistent with R knee instability and L hip OA with decreased strength, ROM and function with gait. Pt requires skilled therapy in order to meet goals and has fair rehab potential. Short Term and Clinical Support Nurse Goals 1. Ind with HEP 2. Improved L hip flexion ROM to 100 deg 3. Pt will ambulate community distances with functional gait speed and FWW 4. Pt will SLR x10 with <=3/10 L hip pain Treatment Plan ? 1. Manual therapy ? 2. Therex ? 3. Modalities as indicated, moist heat, ice, estim Frequency and Duration: 2x a week for 16 visits Certification Dates: 08/10/24 to 11/08/24 Procedure Charges OP PT Eval Mod Complex 30 minutes: Yes
--- NOTE | 2024-08-18 13:44 | PT.ODAYNRPT ---
PT Outpatient Daily Note OP Daily Note Outpatient Physical Therapy Treatment Date: 08/18/24 Visit Reasons: bilateral knee pain Subjective: No new complaints. Objective: Please see flow sheet for ther ex list. Assessment: Pt demonstrates poor endurance, requires short rest breaks in between reps. Plan: Continue with poC. Length of Time (minutes) of Treatment: 30 Minutes Procedure Charges Therapeutic Exercise 30 minutes: Yes
--- NOTE | 2024-08-20 18:37 | PT.ODAYNRPT ---
PT Outpatient Daily Note OP Daily Note Outpatient Physical Therapy Treatment Date: 08/20/24 Visit Reasons: bilateral knee pain Subjective: About the same as last visit Objective: See F/S for therex Assessment: Pt has good hip and knee strength with partial body weight squats and lunging with low tissue irritability Plan: Continue per POC Length of Time (minutes) of Treatment: 30 Minutes Procedure Charges Therapeutic Exercise 30 minutes: Yes
--- NOTE | 2024-08-25 14:49 | PT.ODAYNRPT ---
PT Outpatient Daily Note OP Daily Note Outpatient Physical Therapy Treatment Date: 08/25/24 Visit Reasons: bilateral knee pain Subjective: The knees feel stronger since starting therapy Objective: See F/S for therex Assessment: Pt has good hip and knee strength with partial body weight squats and lunging with low tissue irritability Plan: Continue per POC Length of Time (minutes) of Treatment: 30 Minutes Procedure Charges Therapeutic Exercise 30 minutes: Yes
--- NOTE | 2024-08-27 15:05 | PT.ODAYNRPT ---
PT Outpatient Daily Note OP Daily Note Outpatient Physical Therapy Treatment Date: 08/27/24 Visit Reasons: bilateral knee pain Subjective: The knees feel stronger since starting therapy Objective: See F/S for therex Assessment: Pt has good hip and knee strength with partial body weight squats and lunging with low tissue irritability Plan: Continue per POC Length of Time (minutes) of Treatment: 30 Minutes Procedure Charges Therapeutic Exercise 30 minutes: Yes
== END 2024-08-31 23:59 | disposition home or self-care (01) ==
LOC: CPTX 13:00
PROVIDERS: PCP Physical Medicine & Rehabilitation Pain Medicine; Referring Provider Physical Medicine & Rehabilitation Pain Medicine; Visit Provider Physical Medicine & Rehabilitation Pain Medicine
DX: M25.561 Pain in right knee (principal); M25.552 Pain in left hip; R53.1 Weakness; M25.361 Other instability, right knee; E11.9 Type 2 diabetes mellitus without complications
CPT/HCPCS: 97110; 97162

== ENCOUNTER 2024-09-23 13:13 | Outpatient (RCR) | payer MEDICARE, MEDICAID, SELFPAY ==
--- NOTE | 2024-09-28 05:35 | CTCFLWUP_ITS ---
Patient: NISHANT MURGUIA : 1950 Page 5 of 7 FOLLOW UP NOTE DATE OF SERVICE: 09/23/2024 NAME: NISHANT MURGUIA ACCOUNT: [id number] : 1950 AGE: 73 INTERVAL HISTORY: Nishant, a female with COPD and lung cancer history, presented for follow-up of lung nodules. She underwent left upper lobe resection in 2013 and quit smoking 11 years ago after 41 years of heavy use (4 packs/day). She reports only her usual COPD cough. Recent CT showed small nodules in the right lung requiring surveillance. Management includes repeat CT scan in 5 months, retrieval of previous cancer specimen for testing, and continued COPD management with follow- up after imaging. ONCOLOGY HISTORY:?[facility] Oncology Hx? 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 s/p Patient had left upper lobe lobectomy (09/07/2013) 35-year smoking history COPD history ?CloneBlock Dx? DATE OF DIAGNOSIS: 06/23/2013 STAGE/TNM: IB T2a N0 M0 TREATMENT HISTORY: Care?Plan Start?Date Cycle Day Intent HISTORY OF PRESENT ILLNESS: PREVIOUS NOTE: Tala Murguia is a 73-year-old female with following oncology history. 06/23/2013: CT-guided biopsy of the left lung lesion showed squamous cell carcinoma. 07/21/2013: Patient stopped smoking. 09/07/2013: Patient had left upper lobe lobectomy. Surgical pathology specimen showed a 3.5 cm stage Ib disease. 05/23/2018: Patient had CT scan of the chest with IV contrast which did not show any mediastinal adenopathy or pulmonary parenchymal mass. However there was an interval enhancing lesion anterior right lobe of the liver measuring 23 mm in size. The latest CT scans were compared to previous CT scan of the chest done on April 08, [address] scan of the chest done on August 21, 2016. 06/04/2018: CT scan of the abdomen and pelvis with IV contrast showed 23 mm enhancing right lobe liver lesion. 06/11/2018: CT-guided biopsy of the right liver lesion was negative for malignancy. 12/12/2018: CT scan of the chest abdomen pelvis with IV contrast?no interval metastatic disease. Right lobe liver lesion noted on prior studies is not clearly visualized on this exam. Consider MRI liver follow-up pre and post four-phase contrast as clinically warranted January 08/2019: Patient had hysterectomy as well as bladder lift. 06/24/2021: PET/CT scan? 07/05/2021: CT scan of the chest with IV contrast? 08/23/2022: PET CT fusion skull to thigh 09/26/2022: CT scan of the chest with IV contrast? 02/28/2023: CT scan of chest without contrast 05/07/2023: Bilateral mammogram screening Impression: BI-RADS category 1: Negative findings (within normal) Recommend 1 year follow-up mammogram 08/12/2023: CT chest without contrast Findings: AP dimension ascending thoracic aorta 4.7 cm Mediolateral dimension main pulmonary artery segment 3.6 cm Heavy calcification left main left anterior descending left circumflex right coronary arteries No paratracheal tracheobronchial or bronchopulmonary adenopathy Stable bilateral pulmonary nodules No new pulmonary nodules No interval pneumonia or pulmonary edema Liver irregular in contour, spleen not enlarged Absent gallbladder No pancreatic or adrenal mass IMPRESSION: Stable bilateral pulmonary nodules No new pulmonary nodules OTHER MEDICAL HISTORY/CONDITIONS: COPD, patient has 100 pack year smoking history. Stop smoking 07/21/2013. H. pylori, following up with [facility] Jerez for management and treatment FAMILY HISTORY: ?Clone Family Hx? SOCIAL HISTORY: USED CAR MANAGER HISTORY: Vaginal?Bleeding:?0-None ?Clone USED CAR MANAGER Hx? MEDICATIONS: 1. acyclovir - 400 mg Daily 2. albuterol sulfate - 90 mcg/actuation 2 Puff(s) Three times a day 3. albuterol sulfate - 0.63 mg/3 mL Daily 4. aspirin - 81 mg tab Daily 5. atorvastatin - 40 mg 1 tab Daily 6. Benadryl - 25 mg 2 Capsule Every day before sleep 7. Biotene - 25,000-30 unit 1 Capsule Daily 8. buprenorphine - 5 mcg/hour 1 Patch Weekly 9. Calcium + Vitamin D - 600 mg calcium- 200 unit 1 tab Daily 10. carvedilol - 3.125 mg 1 tab Twice a Day 11. cinacalcet - 60 mg 1 tab Daily 12. cyclobenzaprine - 5 mg 1 tab Three times a day 13. Eliquis - 5 mg 1 tab Twice a Day 14. gabapentin - 800 mg 1 tab Three times a day 15. Imdur - 30 mg 1 tab Daily 16. isosorbide mononitrate - 30 mg 1 tab In the morning 17. Lasix - 40 mg 2 tab Daily 18. levoFLOXacin - 500 mg 1 tab one tab po q daily for 7 days 19. levothyroxine - 175 mcg 1 tab Daily 20. loratadine - 10 mg Daily 21. magnesium oxide - 400 mg magnesium 1 tab Daily 22. metFORMIN - 1,000 mg 1 tab Twice a Day 23. [place] - 7.5-325 mg 1 tab Three times a day 24. potassium chloride - 10 mEq 1 Capsule As directed 25. Spiriva with HandiHaler - 18 mcg Capsule Daily 26. Symbicort - 2 Puff(s) Twice a Day 27. Tylenol Extra Strength - 500 mg tab As needed 28. Ventolin - 2 Puff(s) Every 4 Hours 29. vitamin B complex - 1 Capsule Daily 30. Vitamin C - 1,000 mg 1 tab Daily 31. Women's 50 Plus Multivitamin - 400 mcg-500 mg calcium-20 mcg 1 tab Daily 32. zinc - 15 mg 1 tab Daily?Palabra Meds? Medications Last Reconciled by Lray Ordoñez MA on 09/23/2024 ALLERGIES: sulfasalazine; amoxicillin/potassium clavulanate REVIEW OF SYSTEMS: A complete 14-point review of systems was performed and is negative except as noted in interval history. PHYSICAL EXAMINATION:?CloneBlock PE? VITAL SIGNS: Temperature?98, B/P?121/83, Oxygen?Saturation?96% Weight?217?lbs PAIN: 6 - Severe pain ECOG Performance Status: 0 - Asymptomatic and fully active GENERAL APPEARANCE: Appears well, in no apparent distress, appropriately interactive. HEENT: Normocephalic, no temporal wasting, normal conjunctiva, no scleral icterus, normal hearing, lips without lesions, no neck lymphadenopathy CARDIOVASCULAR: Not assessed. PULMONARY: Normal respiratory effort, no respiratory distress or use of accessory muscles, speaking in full sentences, no tachypnea. EXTREMITIES: No cyanosis. SKIN: Normal skin appearance. NEUROLOGIC: Alert and oriented x4. PSHYCHIATRIC: Appropriate affect, mood normal, behavior normal, intact thought and speech. LABORATORY DATA: I have personally reviewed and interpreted each of the patient?s relevant lab tests, abnormal findings are below: Date 08/25/24 09/23/24 ??WHITE?BLOOD?COUNT?(Thou/mm3) ? 5.3 ??RED?BLOOD?COUNT?(Miln/mm3) ? 4.00 ??HEMOGLOBIN?(gm/dl) ? 12.5 ??HEMATOCRIT?(%) ? 38.4 ??PLATELET?COUNT?(Thou/mm3) ? 228 ??NEUTROPHILS?%,?AUTO?(%) ? 49 ??LYMPH?%,?AUTO?(%) ? 31 ??NEUTROPHILS,?AUTO?(Thou/mm3) ? 2.6 ??GLUCOSE,RANDOM?(mg/dL) 109?H 122?H ??BLOOD?UREA?NITROGEN?(mg/dL) 17 19 ??CREATININE?(mg/dL) 1.20 1.30 ??SODIUM?(mmol/L) 140 142 ??POTASSIUM?(mmol/L) 4.6 4.6 ??CHLORIDE?(mmol/L) 98 98 ??CrCl?(CandG)?(ml/min) 61.58 56.84 ??AST/SGOT?(Unit/L) ? 36?H ??ALT/SGPT?(Unit/L) ? 35 ??ALKALINE?PHOSPHATASE?(Unit/L) ? 101 ??BILIRUBIN,?TOTAL?(mg/dL) ? 0.4 ??PROTEIN?TOTAL?(gm/dl) ? 7.0 ??ALBUMIN,?SERUM?(gm/dl) ? 4.6 ??GLOBULIN?(gm/dl) ? 2.4 ??ALBUMIN/GLOBULIN?RATIO ? 1.9 ??CALCIUM,?SERUM?(mg/dL) 8.8 8.2?L ??CALCIUM?SERUM?(CORRECTED)?(mg/dL) ? 8.2?L ??MAGNESIUM?(mg/dL) ? 1.5?L ASSESSMENT/PLAN:?Desmond Boykin Assessment/Plan? 1. 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 s/p Patient had left upper lobe lobectomy (09/07/2013) 35-year smoking history COPD and pneumonia history Stopped smoking 07/21/2013. PET/CT scan (02/11/2021) negative for metastatic disease. CT of the chest done on 01/29/2024 showed 4 mm pulmonary nodule left lower lobe, recommended 6-month CT of chest without contrast. CT of chest without contrast done on 08/12/2023 shows stable bilateral pulmonary nodules, no new pulmonary nodules. Bilateral mammogram screening, negative findings, 1 year follow-up, 05/07/2023. Nishant, a former smoker with a history of COPD and lung cancer, presents for follow-up of lung nodules. Lung Nodules Assessment: Patient has a history of lung cancer with surgical resection of the upper left lung. Recent CT scan revealed small, multiple nodules in the right lung that have been under surveillance. Given the patient's extensive smoking history (4 packs per day for 41 years) and previous lung cancer, these nodules require close monitoring. Plan: - Repeat CT scan of the chest in 5 months (December) - Retrieve old cancer specimen for further testing - Follow-up appointment after CT scan and additional testing Chronic Obstructive Pulmonary Disease (COPD) Assessment: Patient reports ongoing COPD-related cough, consistent with her known diagnosis. She quit smoking on July 21, 2013, after 41 years of heavy smoking (4 packs per day). It has been approximately 11 years since smoking cessation, which significantly reduces her risk of cardiovascular and pulmonary complications. Plan: - Continue current COPD management (specific treatments not mentioned in transcript) - Encourage continued smoking abstinence Smoking Cessation Assessment: Patient successfully quit smoking on July 21, 2013, after a single 3- hour hypnotherapy session. She reports no smoking since that date, which is a significant achievement given her extensive smoking history. Plan: - Reinforce the health benefits of smoking cessation - Encourage continued abstinence from smoking CBC CMP CEA ORDERS: Order # Description [id number] CT Scan + With W/O Contrast + Chest RETURN TO CLINIC: I reviewed the diagnosis, prognosis, and recommended treatment/procedure options with the patient (and/or their legal tax compliance representative), including the potential benefits, risks, side effects and alternative therapies. We also discussed the option of no treatment and the possibility of clinical trial participation, if applicable. All questions were addressed, and they demonstrated understanding. They provided informed consent to proceed with the proposed plan of care. BILLING AND COMPLIANCE: I reviewed external records from providers outside my specialty as summarized above. I spent a total of 50 minutes on this patient?s care on the day of their visit excluding time spent related to any billed procedures. This time includes time spent with the patient as well as time spent documenting in the medical record, reviewing patients records and tests, obtaining history, placing orders, communicating with other healthcare professionals, counseling the patient, family or caregiver, and/or care coordination for the diagnoses above. Electronically Signed by: Dimas Boykin MD T: 5:32 AM CC: Tanvir?Antoinette? PCP: Teto Ga Referring: Teto Ga This document was completed utilizing speech recognition software. Grammatical errors, random word insertions, pronoun errors, and incomplete sentences are an occasional consequence of this system due to software limitations, ambient noise, and hardware issues. Any formal questions or concerns about the content, text or information contained within the body of this dictation should be directly addressed to the provider for clarification.
== END 2024-10-01 23:59 | disposition home or self-care (01) ==
LOC: SCTC 13:13
PROVIDERS: PCP Physical Medicine & Rehabilitation Pain Medicine; Referring Provider Physical Medicine & Rehabilitation Pain Medicine; Visit Provider Internal Medicine Hematology & Oncology
DX: R91.8 Other nonspecific abnormal finding of lung field (principal); J44.9 Chronic obstructive pulmonary disease, unspecified; Z87.891 Personal history of nicotine dependence; Z90.2 Acquired absence of lung [part of]; Z85.118 Personal history of other malignant neoplasm of bronchus and lung
CPT/HCPCS: 36415; 80053; 83735; 83970; 85025; 99212; G0463

== ENCOUNTER → 2024-09-23 | Outpatient (CLI) | payer MEDICARE, MEDICAID, SELFPAY ==
[2024-09-23 11:39] LABS: Basophils # (Auto) 0.1 Thou/mm3 (0.0-0.2); Basophils % (Auto) 1 % (0-2.5); Eosinophils # (Auto) 0.1 Thou/mm3 (0.0-0.5); Eosinophils % (Auto) 2 % (0-10); Hematocrit 38.4 % (36.0-46.0); Hemoglobin 12.5 g/dL (12.0-16.0); Immature Granulocytes Auto 0.00 Thou/mm3 (0.00-0.00); Lymphocytes # (Auto) 1.7 Thou/mm3 (1.0-4.8); Lymphocytes % (Auto) 31 % (10-50); Mean Corpuscular HGB Conc 32.6 g/dl (31.0-37.0); Mean Corpuscular Hemoglobin 31.3 pg (25.0-35.0); Mean Corpuscular Volume 96 fL (80-100); Monocytes # (Auto) 0.9 Thou/mm3 (0.0-0.8); Monocytes % (Auto) 16 % (0-12); Neutrophils # (Auto) 2.6 Thou/mm3 (1.8-7.7); Neutrophils % (Auto) 49 % (37-80); Nucleated Red Blood Cell # 0.00 Thou/mm3 (0.00-0.00); Nucleated Red Blood Cell % 0 /100 WBC (0); Platelet Count 228 Thou/mm3 (140-440); RDW Standard Deviation 49.1 fL (36.4-46.3); Red Blood Count 4.00 Miln/mm3 (4.00-5.20); White Blood Count 5.3 Thou/mm3 (3.6-11.0)
[2024-09-23 11:56] LABS: Parathyroid Hormone Intact 159.7 pg/ml (18.5-88.0)
[2024-09-23 12:11] LABS: Alanine Aminotransferase 35 U/L (10-49); Albumin, Serum 4.6 gm/dL (3.4-4.8); Albumin/Globulin Ratio 1.9 (1.2-2.2); Alkaline Phosphatase 101 U/L (46-116); Anion Gap 12 (7-16); Aspartate Amino Transferase 36 U/L (0-34); BUN/Creatinine Ratio 15 Ratio (12-20); Bilirubin,Total 0.4 mg/dL (0.3-1.2); Blood Urea Nitrogen 19 mg/dL (9-23); Calcium 8.2 mg/dL (8.3-10.6); Calcium (Corrected) 8.2 mg/dL (8.5-10.1); Carbon Dioxide 32.1 mMol/L (20.0-31.0); Chloride 98 mMol/L (98-107); Creatinine (Component) 1.3 mg/dL (0.6-1.3); Globulin 2.4 gm/dL (2.3-3.5); Glucose 122 mg/dL (74-106); Magnesium 1.5 mg/dL (1.6-2.6); Osmolality,Calculated 286 (275-295); Potassium 4.6 mMol/L (3.4-5.1); Sodium 142 mMol/L (136-145); Total Protein 7.0 gm/dL (5.7-8.2); eGFR 44 See Note
== END | disposition home or self-care (01) ==
PROVIDERS: PCP Student in an Organized Health Care Education/Training Program; Referring Provider Internal Medicine Nephrology; Visit Provider Internal Medicine Nephrology
DX: I12.9 Hypertensive chronic kidney disease with stage 1 through stage 4 chronic kidney disease, or unspecified chronic kidney disease (principal); E11.22 Type 2 diabetes mellitus with diabetic chronic kidney disease; N18.9 Chronic kidney disease, unspecified; D63.1 Anemia in chronic kidney disease; E78.5 Hyperlipidemia, unspecified; E21.3 Hyperparathyroidism, unspecified
CPT/HCPCS: 36415; 80053; 83735; 83970; 85025

== ENCOUNTER 2024-10-01 14:30 | Outpatient (RCR) | payer MEDICARE, MEDICAID, SELFPAY ==
--- NOTE | 2024-09-08 18:04 | PT.ODAYNRPT ---
PT Outpatient Daily Note OP Daily Note Outpatient Physical Therapy Treatment Date: 09/08/24 Visit Reasons: bilateral knee pain Subjective: The knees feel stronger since starting therapy Objective: See F/S for therex Assessment: Pt has good hip and knee strength with partial body weight squats and lunging with low tissue irritability Plan: Continue per POC Length of Time (minutes) of Treatment: 30 Minutes Procedure Charges Therapeutic Exercise 30 minutes: Yes
--- NOTE | 2024-09-10 14:04 | PT.ODAYNRPT ---
PT Outpatient Daily Note OP Daily Note Outpatient Physical Therapy Treatment Date: 09/10/24 Visit Reasons: bilateral knee pain Subjective: The knees feel stronger since starting therapy. Less L hip pain recently. Objective: See F/S for therex Assessment: Pt has good hip and knee strength with partial body weight squats and lunging with low tissue irritability Plan: Continue per POC Length of Time (minutes) of Treatment: 30 Minutes Procedure Charges Therapeutic Exercise 30 minutes: Yes
--- NOTE | 2024-09-15 13:56 | PT.ODS1RPT ---
PT OP Progress/Discharge Note Date of Service: 09/15/24 Progress Note/DC Note Progress Note/Discharge Note: Progress Note Patient Information Visit Reasons: bilateral knee pain Service Continue Service or Discharge: Continue Service Status Subjective: Pt reports better strength and less pain in L hip. Ambulating without the cane. The R knee isn't hurting much. Objective: L hip AROM: Flexion: 90 deg Abduction: 30 deg Gait: some lateral sway, not using assistive device SLR: 40 deg Assessment: Pt has attended the eval and 7 Rx visits with good progress with therapy goals. She is able to ambulate without assistive device community distances with symmetrical pattern to meet that goal. Pt can SLR x5 with better strength on L. Pt is independent with HEP. Pt would benefit from skilled therapy to meet L hip ROM goal of 100 deg flexion. Plan: Continue per POC up to 16 total visits if needed Procedure Charges Therapeutic Exercise 30 minutes: Yes
--- NOTE | 2024-09-17 14:15 | PT.ODAYNRPT ---
PT Outpatient Daily Note OP Daily Note Outpatient Physical Therapy Treatment Date: 09/17/24 Visit Reasons: bilateral knee pain Subjective: Pt reports she is having pain on the L thumb today due to her gout. Pt determined to do what she can for PT. Objective: Please see flow sheet for ther ex list. Assessment: Interventions completed with fatigue but no other complaints. Mod A for pt to get up from TG squat machine due to pt not being able to push off with her L hand. Plan: Continue with poC. Length of Time (minutes) of Treatment: 30 Minutes MEXICAN FOOD MACHINE TENDER Service Modifier Method I: Divide the number of min of care provided by the MEXICAN FOOD MACHINE TENDER/RICHARD by the total min of care provided then multiply by 100. If greater than 11 percent modifier is required. Method II: Divide the total time of care provided to patient by 10 (round to the nearest whole number) and add 1 min. to set the minimum time requirement. If treatment total was 60 min., then 10% of 6 min PT CQ modifier applied: CQ Modifier applied Procedure Charges Therapeutic Exercise 30 minutes: Yes
--- NOTE | 2024-09-22 14:23 | PTNOTE_ITS ---
PT Outpatient Daily Note OP Daily Note Outpatient Physical Therapy Treatment Date: 09/22/24 Visit Reasons: bilateral knee pain Subjective: Pt reports she bumped her L pinky toe against a table at home, pinky toe is bruised. Objective: Please see flow sheet for ther ex list. Assessment: Pt able to complete assigned interventions despite c/o pinky toe pain. Plan: Continue with poC. Length of Time (minutes) of Treatment: 30 Minutes WRITING MANAGER Service Modifier Method I: Divide the number of min of care provided by the WRITING MANAGER/CIGAR BINDER by the total min of care provided then multiply by 100. If greater than 11 percent modifier is required. Method II: Divide the total time of care provided to patient by 10 (round to the nearest whole number) and add 1 min. to set the minimum time requirement. If treatment total was 60 min., then 10% of 6 min PT CQ modifier applied: CQ Modifier applied Procedure Charges Therapeutic Exercise 30 minutes: Yes
--- NOTE | 2024-09-24 14:39 | PT.ODAYNRPT ---
PT Outpatient Daily Note OP Daily Note Outpatient Physical Therapy Treatment Date: 09/24/24 Visit Reasons: bilateral knee pain Subjective: No new complaints. Objective: Please see flow sheet for ther ex list. Assessment: Pt demonstrates poor endurance limiting progress in clinic. Plan: Continue with pOC. Length of Time (minutes) of Treatment: 30 Minutes Procedure Charges Therapeutic Exercise 30 minutes: Yes
--- NOTE | 2024-09-29 15:21 | PTNOTE_ITS ---
PT Outpatient Daily Note OP Daily Note Outpatient Physical Therapy Treatment Date: 09/29/24 Visit Reasons: bilateral knee pain Subjective: Pt reports progress. Objective: Please see flow sheet for ther ex list. Assessment: Pt demonstrates increase endurance indicated by increase time on stationary bike. Plan: Continue withpoC. Length of Time (minutes) of Treatment: 30 Minutes BLACKTOP SPREADER Service Modifier Method I: Divide the number of min of care provided by the BLACKTOP SPREADER/SUPERVISOR PURIFICATION by the total min of care provided then multiply by 100. If greater than 11 percent modifier is required. Method II: Divide the total time of care provided to patient by 10 (round to the nearest whole number) and add 1 min. to set the minimum time requirement. If treatment total was 60 min., then 10% of 6 min PT CQ modifier applied: CQ Modifier applied
--- NOTE | 2024-10-01 15:30 | PT.ODAYNRPT ---
PT Outpatient Daily Note OP Daily Note Outpatient Physical Therapy Treatment Date: 10/01/24 Visit Reasons: bilateral knee pain Subjective: The knees feel stronger since starting therapy. No L hip pain recently. Objective: See F/S for therex Assessment: Pt has good hip and knee strength with partial body weight squats and lunging with low tissue irritability and is ambulating without assistive device. Plan: Continue per POC Length of Time (minutes) of Treatment: 30 Minutes Procedure Charges Therapeutic Exercise 30 minutes: Yes
== END 2024-10-01 23:59 | disposition home or self-care (01) ==
LOC: CPTX 14:30
PROVIDERS: PCP Physical Medicine & Rehabilitation Pain Medicine; Referring Provider Physical Medicine & Rehabilitation Pain Medicine; Visit Provider Physical Medicine & Rehabilitation Pain Medicine
DX: M25.561 Pain in right knee (principal); M25.552 Pain in left hip; R53.1 Weakness; M25.361 Other instability, right knee; M16.12 Unilateral primary osteoarthritis, left hip
CPT/HCPCS: 97110

== ENCOUNTER 2024-10-20 14:30 | Outpatient (RCR) | payer MEDICARE, MEDICAID, SELFPAY ==
--- NOTE | 2024-10-06 16:55 | PT.ODAYNRPT ---
PT Outpatient Daily Note OP Daily Note Outpatient Physical Therapy Treatment Date: 10/06/24 Visit Reasons: Bilateral knee pain Subjective: The knees feel stronger since starting therapy. No L hip pain today Objective: See F/S for therex Assessment: Pt has good hip and knee strength with partial body weight squats and lunging with low tissue irritability and is ambulating without assistive device. Plan: Continue per POC Length of Time (minutes) of Treatment: 30 Minutes Procedure Charges Therapeutic Exercise 30 minutes: Yes
--- NOTE | 2024-10-13 17:25 | PT.ODAYNRPT ---
PT Outpatient Daily Note OP Daily Note Outpatient Physical Therapy Treatment Date: 10/13/24 Visit Reasons: Bilateral knee pain Subjective: The knees feel stronger since starting therapy. No L hip pain today Objective: See F/S for therex Assessment: Pt has good hip and knee strength with partial body weight squats and lunging with low tissue irritability and is ambulating without assistive device. Plan: Reassess Length of Time (minutes) of Treatment: 30 Minutes Procedure Charges Therapeutic Exercise 30 minutes: Yes
--- NOTE | 2024-10-20 15:57 | PT.ODS1RPT ---
PT OP Progress/Discharge Note Date of Service: 10/20/24 Progress Note/DC Note Progress Note/Discharge Note: DC Note Patient Information Visit Reasons: Bilateral knee pain Service Continue Service or Discharge: Discharge Discharge Date: 10/20/24 Status Subjective: Pt reports better strength and less pain in L hip. Ambulating without the cane. The R knee isn't hurting much. Pt plans to go to the gym. Objective: L hip AROM: Flexion 90 deg Abd: 40 deg SLR: 35 deg R knee AROM: Extension: full Flexion: 110 deg Varus/valgus: high gapping into both ways Assessment: Pt has attended the eval and 15 Rx visits with good progress with therapy goals. She is able to ambulate without assistive device community distances with symmetrical pattern to meet that goal. Pt can SLR x5 with better strength on L but the hip hurts so she hasn't met the goal of 10x. Pt is independent with HEP to meet that goal. L hip AROM is 90 deg and she has met the goal of 100 deg of PROM. Plan: D/C with HEP Procedure Charges Therapeutic Exercise 30 minutes: Yes
== END 2024-11-01 23:59 | disposition home or self-care (01) ==
LOC: CPTX 14:30
PROVIDERS: PCP Physical Medicine & Rehabilitation Pain Medicine; Referring Provider Physical Medicine & Rehabilitation Pain Medicine; Visit Provider Physical Medicine & Rehabilitation Pain Medicine
DX: M25.552 Pain in left hip (principal); M25.561 Pain in right knee; R53.1 Weakness; Z96.642 Presence of left artificial hip joint
CPT/HCPCS: 97110

== ENCOUNTER → 2024-10-21 | Outpatient (CLI) | payer MEDICARE, MEDICAID, SELFPAY ==
[2024-10-21 11:55] LABS: Basophils # (Auto) 0.0 Thou/mm3 (0.0-0.2); Basophils % (Auto) 1 % (0-2.5); Eosinophils # (Auto) 0.1 Thou/mm3 (0.0-0.5); Eosinophils % (Auto) 2 % (0-10); Hematocrit 38.0 % (36.0-46.0); Hemoglobin 12.5 g/dL (12.0-16.0); Immature Granulocytes Auto 0.01 Thou/mm3 (0.00-0.00); Lymphocytes # (Auto) 1.4 Thou/mm3 (1.0-4.8); Lymphocytes % (Auto) 29 % (10-50); Mean Corpuscular HGB Conc 32.9 g/dl (31.0-37.0); Mean Corpuscular Hemoglobin 31.9 pg (25.0-35.0); Mean Corpuscular Volume 97 fL (80-100); Monocytes # (Auto) 0.7 Thou/mm3 (0.0-0.8); Monocytes % (Auto) 14 % (0-12); Neutrophils # (Auto) 2.6 Thou/mm3 (1.8-7.7); Neutrophils % (Auto) 54 % (37-80); Nucleated Red Blood Cell # 0.00 Thou/mm3 (0.00-0.00); Nucleated Red Blood Cell % 0 /100 WBC (0); Platelet Count 214 Thou/mm3 (140-440); RDW Standard Deviation 50.2 fL (36.4-46.3); Red Blood Count 3.92 Miln/mm3 (4.00-5.20); White Blood Count 4.8 Thou/mm3 (3.6-11.0)
[2024-10-21 12:12] LABS: Parathyroid Hormone Intact 123.8 pg/ml (18.5-88.0)
[2024-10-21 12:25] LABS: Alanine Aminotransferase 50 U/L (10-49); Albumin, Serum 4.6 gm/dL (3.4-4.8); Albumin/Globulin Ratio 2.1 (1.2-2.2); Alkaline Phosphatase 94 U/L (46-116); Anion Gap 12 (7-16); Aspartate Amino Transferase 55 U/L (0-34); BUN/Creatinine Ratio 9 Ratio (12-20); Bilirubin,Total 0.5 mg/dL (0.3-1.2); Blood Urea Nitrogen 11 mg/dL (9-23); Calcium 8.8 mg/dL (8.3-10.6); Calcium (Corrected) 8.8 mg/dL (8.5-10.1); Carbon Dioxide 32.5 mMol/L (20.0-31.0); Chloride 99 mMol/L (98-107); Creatinine (Component) 1.2 mg/dL (0.6-1.3); Globulin 2.2 gm/dL (2.3-3.5); Glucose 118 mg/dL (74-106); Magnesium 1.9 mg/dL (1.6-2.6); Osmolality,Calculated 285 (275-295); Phosphorous 5.9 mg/dL (2.4-5.1); Potassium 4.8 mMol/L (3.4-5.1); Sodium 143 mMol/L (136-145); Total Protein 6.8 gm/dL (5.7-8.2); eGFR 48 See Note
== END | disposition home or self-care (01) ==
LOC: COPL 10:18
PROVIDERS: PCP Student in an Organized Health Care Education/Training Program; Referring Provider Internal Medicine Nephrology; Visit Provider Internal Medicine Nephrology
DX: I12.9 Hypertensive chronic kidney disease with stage 1 through stage 4 chronic kidney disease, or unspecified chronic kidney disease (principal); E11.22 Type 2 diabetes mellitus with diabetic chronic kidney disease; N18.9 Chronic kidney disease, unspecified; D63.1 Anemia in chronic kidney disease; E21.3 Hyperparathyroidism, unspecified
CPT/HCPCS: 36415; 80053; 83735; 83970; 84100; 85025

== ENCOUNTER → 2024-11-11 | Outpatient (CLI) | payer MEDICARE, MEDICAID, SELFPAY ==
--- NOTE | 2024-11-11 14:00 | XR_ITS ---
Examination: Thyroid sonography complete TECHNIQUE: Grayscale sonographic images thyroid lobes. Date and time: August 11, 2024 1410 hours, comparison August 15, 2021. INDICATIONS: 5 mm Isthmus nodule, lower pole right thyroid nodule 13 mm, lower pole left thyroid nodule 13 mm FINDINGS: Right thyroid 4.2 cm Upper pole nodule 14 x 8 x 10 mm Left thyroid 4.2 cm No cystic or solid masses IMPRESSION: 14 x 8 x 10 mm upper pole right thyroid nodule not vascular
== END | disposition home or self-care (01) ==
PROVIDERS: PCP Internal Medicine Nephrology; Referring Provider Internal Medicine Nephrology; Visit Provider Internal Medicine Nephrology
DX: E04.1 Nontoxic single thyroid nodule (principal); N18.4 Chronic kidney disease, stage 4 (severe)
CPT/HCPCS: 76536

== ENCOUNTER → 2024-11-11 | Outpatient (CLI) | payer MEDICARE, MEDICAID, SELFPAY ==
[2024-11-11 12:24] LABS: Basophils # (Auto) 0.0 Thou/mm3 (0.0-0.2); Basophils % (Auto) 1 % (0-2.5); Eosinophils # (Auto) 0.1 Thou/mm3 (0.0-0.5); Eosinophils % (Auto) 3 % (0-10); Hematocrit 39.6 % (36.0-46.0); Hemoglobin 12.8 g/dL (12.0-16.0); Immature Granulocytes Auto 0.01 Thou/mm3 (0.00-0.00); Lymphocytes # (Auto) 0.9 Thou/mm3 (1.0-4.8); Lymphocytes % (Auto) 22 % (10-50); Mean Corpuscular HGB Conc 32.3 g/dl (31.0-37.0); Mean Corpuscular Hemoglobin 31.5 pg (25.0-35.0); Mean Corpuscular Volume 98 fL (80-100); Monocytes # (Auto) 0.7 Thou/mm3 (0.0-0.8); Monocytes % (Auto) 16 % (0-12); Neutrophils # (Auto) 2.5 Thou/mm3 (1.8-7.7); Neutrophils % (Auto) 58 % (37-80); Nucleated Red Blood Cell # 0.00 Thou/mm3 (0.00-0.00); Nucleated Red Blood Cell % 0 /100 WBC (0); Platelet Count 215 Thou/mm3 (140-440); RDW Standard Deviation 51.2 fL (36.4-46.3); Red Blood Count 4.06 Miln/mm3 (4.00-5.20); White Blood Count 4.3 Thou/mm3 (3.6-11.0)
[2024-11-11 12:50] LABS: Creatinine MALB Rnd Ur 27 mg/dL (30-125); Microalbumin Creat Ratio 15 mg/gCrea (<30); Microalbumin, Random Urine 4 mg/L (0-300)
[2024-11-11 13:01] LABS: Parathyroid Hormone Intact 132.7 pg/ml (18.5-88.0)
[2024-11-11 13:05] LABS: Vitamin D 25 Hydroxy Total 46.8 ng/mL (7.3-40.2)
[2024-11-11 13:08] LABS: Alanine Aminotransferase 43 U/L (10-49); Albumin, Serum 4.8 gm/dL (3.4-4.8); Albumin/Globulin Ratio 2.1 (1.2-2.2); Alkaline Phosphatase 96 U/L (46-116); Anion Gap 11 (7-16); Aspartate Amino Transferase 48 U/L (0-34); BUN/Creatinine Ratio 11 Ratio (12-20); Bilirubin,Total 0.6 mg/dL (0.3-1.2); Blood Urea Nitrogen 13 mg/dL (9-23); Calcium 8.9 mg/dL (8.3-10.6); Calcium (Corrected) 8.9 mg/dL (8.5-10.1); Carbon Dioxide 32.2 mMol/L (20.0-31.0); Chloride 100 mMol/L (98-107); Creatinine (Component) 1.2 mg/dL (0.6-1.3); Free T4 (Free Thyroxine) 1.34 ng/dL (0.89-1.76); Globulin 2.3 gm/dL (2.3-3.5); Glucose 100 mg/dL (74-106); Magnesium 1.9 mg/dL (1.6-2.6); Osmolality,Calculated 285 (275-295); Potassium 4.8 mMol/L (3.4-5.1); Sodium 143 mMol/L (136-145); Thyroid Stimulating Hormone 3.43 uIU/mL (0.55-4.78); Total Protein 7.1 gm/dL (5.7-8.2); Uric Acid 7.2 mg/dL (3.1-7.8); eGFR 48 See Note
[2024-11-11 13:14] LABS: Glucose Estimated Average 146 mg/dL (80-131); Hemoglobin A1C 6.7 % Hgb (4.8-6.0)
[2024-11-11 13:22] LABS: Cardiac Risk Estimate 2.4 RATIO (3.7-5.6); Cholesterol 158 mg/dL (132-200); HDL Cholesterol 67 mg/dL (40-60); LDL Cholesterol,Calculated 57 mg/dL (0-130); Triglycerides 170 mg/dL (30-150)
== END | disposition home or self-care (01) ==
PROVIDERS: PCP Student in an Organized Health Care Education/Training Program; Referring Provider Internal Medicine Nephrology; Visit Provider Internal Medicine Nephrology
DX: N04.9 Nephrotic syndrome with unspecified morphologic changes (principal); E21.3 Hyperparathyroidism, unspecified; E55.9 Vitamin D deficiency, unspecified; E03.9 Hypothyroidism, unspecified; M10.30 Gout due to renal impairment, unspecified site; E11.22 Type 2 diabetes mellitus with diabetic chronic kidney disease; N18.9 Chronic kidney disease, unspecified; E78.5 Hyperlipidemia, unspecified
CPT/HCPCS: 36415; 80053; 80061; 82043; 82306; 82570; 83036; 83735; 83970; 84439; 84443; 84550; 85025

== ENCOUNTER 2024-12-07 08:55 | Outpatient (RCR) | payer MEDICARE, MEDICAID, SELFPAY ==
--- NOTE | 2024-12-07 09:00 | XR_ITS ---
Examination: Nuclear medicine parathyroid scan Date and time: December 07, 2024, 1316 hours INDICATIONS: Elevated PTH on laboratory examination this week. TECHNIQUE AND FINDINGS: Intravenous administration 24.4 mCi 90 9M technetium sestamibi, anterior pinhole and chest images obtained before hours Normal salivary gland and thyroid uptake Negative for parathyroid activity IMPRESSION: No abnormal parathyroid isotope accumulation noted
== END 2024-12-12 23:59 | disposition home or self-care (01) ==
LOC: SNUC 08:55
PROVIDERS: PCP Family Medicine; Referring Provider Internal Medicine Nephrology; Visit Provider Internal Medicine Nephrology
DX: E21.3 Hyperparathyroidism, unspecified (principal); E83.52 Hypercalcemia
CPT/HCPCS: 78070; A9500

== ENCOUNTER → 2024-12-16 | Outpatient (CLI) | payer MEDICARE, MEDICAID, SELFPAY ==
[2024-12-16 12:29] LABS: Basophils # (Auto) 0.0 Thou/mm3 (0.0-0.2); Basophils % (Auto) 1 % (0-2.5); Eosinophils # (Auto) 0.1 Thou/mm3 (0.0-0.5); Eosinophils % (Auto) 1 % (0-10); Hematocrit 38.9 % (36.0-46.0); Hemoglobin 12.9 g/dL (12.0-16.0); Immature Granulocytes Auto 0.01 Thou/mm3 (0.00-0.00); Lymphocytes # (Auto) 1.3 Thou/mm3 (1.0-4.8); Lymphocytes % (Auto) 23 % (10-50); Mean Corpuscular HGB Conc 33.2 g/dl (31.0-37.0); Mean Corpuscular Hemoglobin 31.7 pg (25.0-35.0); Mean Corpuscular Volume 96 fL (80-100); Monocytes # (Auto) 0.8 Thou/mm3 (0.0-0.8); Monocytes % (Auto) 14 % (0-12); Neutrophils # (Auto) 3.3 Thou/mm3 (1.8-7.7); Neutrophils % (Auto) 60 % (37-80); Nucleated Red Blood Cell # 0.00 Thou/mm3 (0.00-0.00); Nucleated Red Blood Cell % 0 /100 WBC (0); Platelet Count 229 Thou/mm3 (140-440); RDW Standard Deviation 48.5 fL (36.4-46.3); Red Blood Count 4.07 Miln/mm3 (4.00-5.20); White Blood Count 5.4 Thou/mm3 (3.6-11.0)
[2024-12-16 12:50] LABS: Alanine Aminotransferase 42 U/L (10-49); Albumin, Serum 4.8 gm/dL (3.4-4.8); Albumin/Globulin Ratio 2.1 (1.2-2.2); Alkaline Phosphatase 116 U/L (46-116); Anion Gap 12 (7-16); Aspartate Amino Transferase 31 U/L (0-34); BUN/Creatinine Ratio 15 Ratio (12-20); Bilirubin,Total 0.4 mg/dL (0.3-1.2); Blood Urea Nitrogen 16 mg/dL (9-23); Calcium 8.3 mg/dL (8.3-10.6); Calcium (Corrected) 8.3 mg/dL (8.5-10.1); Carbon Dioxide 31.6 mMol/L (20.0-31.0); Chloride 99 mMol/L (98-107); Creatinine (Component) 1.1 mg/dL (0.6-1.3); Globulin 2.3 gm/dL (2.3-3.5); Glucose 97 mg/dL (74-106); Osmolality,Calculated 286 (275-295); Potassium 4.7 mMol/L (3.4-5.1); Sodium 143 mMol/L (136-145); Total Protein 7.1 gm/dL (5.7-8.2); eGFR 53 See Note
== END | disposition home or self-care (01) ==
PROVIDERS: PCP Student in an Organized Health Care Education/Training Program; Referring Provider Internal Medicine Nephrology; Visit Provider Internal Medicine Nephrology
DX: I12.9 Hypertensive chronic kidney disease with stage 1 through stage 4 chronic kidney disease, or unspecified chronic kidney disease (principal); N18.9 Chronic kidney disease, unspecified; D63.1 Anemia in chronic kidney disease; E21.3 Hyperparathyroidism, unspecified
CPT/HCPCS: 36415; 80053; 80061; 84443; 85025

== ENCOUNTER → 2025-01-13 | Outpatient (CLI) | payer MEDICARE, MEDICAID, SELFPAY ==
[2025-01-13 12:03] LABS: Basophils # (Auto) 0.1 Thou/mm3 (0.0-0.2); Basophils % (Auto) 1 % (0-2.5); Eosinophils # (Auto) 0.1 Thou/mm3 (0.0-0.5); Eosinophils % (Auto) 2 % (0-10); Hematocrit 39.7 % (36.0-46.0); Hemoglobin 13.3 g/dL (12.0-16.0); Immature Granulocytes Auto 0.00 Thou/mm3 (0.00-0.00); Lymphocytes # (Auto) 1.8 Thou/mm3 (1.0-4.8); Lymphocytes % (Auto) 32 % (10-50); Mean Corpuscular HGB Conc 33.5 g/dl (31.0-37.0); Mean Corpuscular Hemoglobin 31.8 pg (25.0-35.0); Mean Corpuscular Volume 95 fL (80-100); Monocytes # (Auto) 0.8 Thou/mm3 (0.0-0.8); Monocytes % (Auto) 15 % (0-12); Neutrophils # (Auto) 2.9 Thou/mm3 (1.8-7.7); Neutrophils % (Auto) 51 % (37-80); Nucleated Red Blood Cell # 0.00 Thou/mm3 (0.00-0.00); Nucleated Red Blood Cell % 0 /100 WBC (0); Platelet Count 220 Thou/mm3 (140-440); RDW Standard Deviation 47.7 fL (36.4-46.3); Red Blood Count 4.18 Miln/mm3 (4.00-5.20); White Blood Count 5.7 Thou/mm3 (3.6-11.0)
[2025-01-13 12:20] LABS: Parathyroid Hormone Intact 120.2 pg/ml (18.5-88.0)
[2025-01-13 12:26] LABS: Vitamin D 25 Hydroxy Total 57.2 ng/mL (7.3-40.2)
[2025-01-13 12:46] LABS: Alanine Aminotransferase 30 U/L (10-49); Albumin, Serum 5.0 gm/dL (3.4-4.8); Albumin/Globulin Ratio 2.8 (1.2-2.2); Alkaline Phosphatase 94 U/L (46-116); Anion Gap 14 (7-16); Aspartate Amino Transferase 29 U/L (0-34); BUN/Creatinine Ratio 14 Ratio (12-20); Bilirubin,Total 0.4 mg/dL (0.3-1.2); Blood Urea Nitrogen 15 mg/dL (9-23); Calcium 8.7 mg/dL (8.3-10.6); Calcium (Corrected) 8.7 mg/dL (8.5-10.1); Carbon Dioxide 27.7 mMol/L (20.0-31.0); Chloride 102 mMol/L (98-107); Creatinine (Component) 1.1 mg/dL (0.6-1.3); Globulin 1.8 gm/dL (2.3-3.5); Glucose 86 mg/dL (74-106); Osmolality,Calculated 286 (275-295); Phosphorous 5.1 mg/dL (2.4-5.1); Potassium 4.4 mMol/L (3.4-5.1); Sodium 144 mMol/L (136-145); Total Protein 6.8 gm/dL (5.7-8.2); eGFR 53 See Note
== END | disposition home or self-care (01) ==
LOC: SCTO 10:41
PROVIDERS: PCP Student in an Organized Health Care Education/Training Program; Referring Provider Internal Medicine Hematology & Oncology; Visit Provider Internal Medicine Nephrology
DX: C34.12 Malignant neoplasm of upper lobe, left bronchus or lung (principal); I12.9 Hypertensive chronic kidney disease with stage 1 through stage 4 chronic kidney disease, or unspecified chronic kidney disease; N18.9 Chronic kidney disease, unspecified; D63.1 Anemia in chronic kidney disease; E21.3 Hyperparathyroidism, unspecified; E55.9 Vitamin D deficiency, unspecified
CPT/HCPCS: 36415; 80053; 82306; 83970; 84100; 85025

== ENCOUNTER → 2025-02-03 | Outpatient (CLI) | payer MEDICARE, MEDICAID, SELFPAY ==
--- NOTE | 2025-02-03 10:00 | XR_ITS ---
Examination: CT chest with intravenous contrast CT chest without intravenous contrast 2-D reconstructions Date and time of exam: February 03, 2025, 1113 hours, comparison July 22, 2024, January 29, 2024 INDICATIONS: Diagnosis malignant neoplasm upper left lobe, 4 mm pulmonary nodule right upper lobe 10 mm pulmonary nodule right lower lobe 6 mm pulmonary nodule left upper lobe on CT chest July 22, 2024 CTDI:vol (mGy) 30.4 DLP: (mGycm) 1114 Technique: Multiple axial sections of the thorax have been obtained. 3 mm slice thickness, from the hemidiaphragms to above the apices of the lungs. Mediastinal and lung density settings have been obtained. Intravenous contrast administered 60 cc Isovue-370. Noncontrast images have also been obtained. 2-D sagittal coronal images obtained. Low dose protocols were performed. One or more of the following dose reduction techniques were used; automated exposure control, adjustment of the mA and/or KV according to patient size, use of iterative reconstruction technique. Findings: Thoracic aortic calcification, AP dimension ascending thoracic aorta 4.5 cm No pulmonary artery emboli Heavy calcification left main and left anterior descending and left circumflex right coronary arteries No paratracheal tracheobronchial or bronchopulmonary adenopathy. Stable bilateral pulmonary nodules No new pulmonary nodules No interval pneumonia or pulmonary edema Liver is irregular in contour Absent gallbladder No common hepatic or common bile duct stones noted Atrophic pancreas Normal adrenal glands Kidneys partially visualized no hydronephrosis Moderate to advanced diffuse thoracic degenerative disc disease IMPRESSION: Aneurysmal dilatation ascending thoracic aorta Heavy coronary artery calcification No interval mediastinal lymphadenopathy Stable bilateral pulmonary nodules, no new pulmonary nodules Cirrhosis
== END | disposition home or self-care (01) ==
LOC: SCAT 10:00
PROVIDERS: PCP Student in an Organized Health Care Education/Training Program; Referring Provider Internal Medicine Hematology & Oncology; Visit Provider Internal Medicine Hematology & Oncology
DX: I71.21 Aneurysm of the ascending aorta, without rupture (principal); R91.8 Other nonspecific abnormal finding of lung field; I25.10 Atherosclerotic heart disease of native coronary artery without angina pectoris; C34.12 Malignant neoplasm of upper lobe, left bronchus or lung
CPT/HCPCS: 71270; A4649; Q9967

== ENCOUNTER → 2025-02-17 | Outpatient (CLI) | payer MEDICARE, MEDICAID, SELFPAY ==
[2025-02-17 11:20] LABS: Basophils # (Auto) 0.1 Thou/mm3 (0.0-0.2); Basophils % (Auto) 1 % (0-2.5); Eosinophils # (Auto) 0.1 Thou/mm3 (0.0-0.5); Eosinophils % (Auto) 1 % (0-10); Hematocrit 37.2 % (36.0-46.0); Hemoglobin 12.4 g/dL (12.0-16.0); Immature Granulocytes Auto 0.01 Thou/mm3 (0.00-0.00); Lymphocytes # (Auto) 1.7 Thou/mm3 (1.0-4.8); Lymphocytes % (Auto) 30 % (10-50); Mean Corpuscular HGB Conc 33.3 g/dl (31.0-37.0); Mean Corpuscular Hemoglobin 31.6 pg (25.0-35.0); Mean Corpuscular Volume 95 fL (80-100); Monocytes # (Auto) 0.9 Thou/mm3 (0.0-0.8); Monocytes % (Auto) 15 % (0-12); Neutrophils # (Auto) 3.0 Thou/mm3 (1.8-7.7); Neutrophils % (Auto) 52 % (37-80); Nucleated Red Blood Cell # 0.00 Thou/mm3 (0.00-0.00); Nucleated Red Blood Cell % 0 /100 WBC (0); Platelet Count 280 Thou/mm3 (140-440); RDW Standard Deviation 48.3 fL (36.4-46.3); Red Blood Count 3.93 Miln/mm3 (4.00-5.20); White Blood Count 5.7 Thou/mm3 (3.6-11.0)
[2025-02-17 11:37] LABS: Alanine Aminotransferase 25 U/L (10-49); Albumin, Serum 4.7 gm/dL (3.4-4.8); Albumin/Globulin Ratio 2.0 (1.2-2.2); Alkaline Phosphatase 99 U/L (46-116); Anion Gap 13 (7-16); Aspartate Amino Transferase 28 U/L (0-34); BUN/Creatinine Ratio 12 Ratio (12-20); Bilirubin,Total 0.5 mg/dL (0.3-1.2); Blood Urea Nitrogen 14 mg/dL (9-23); Calcium 7.8 mg/dL (8.3-10.6); Calcium (Corrected) 7.8 mg/dL (8.5-10.1); Carbon Dioxide 28.9 mMol/L (20.0-31.0); Chloride 101 mMol/L (98-107); Creatinine (Component) 1.2 mg/dL (0.6-1.3); Globulin 2.4 gm/dL (2.3-3.5); Glucose 90 mg/dL (74-106); Osmolality,Calculated 285 (275-295); Potassium 4.1 mMol/L (3.4-5.1); Sodium 143 mMol/L (136-145); Total Protein 7.1 gm/dL (5.7-8.2); eGFR 48 See Note
== END | disposition home or self-care (01) ==
LOC: COPL 10:42
PROVIDERS: PCP Student in an Organized Health Care Education/Training Program; Referring Provider Internal Medicine Nephrology; Visit Provider Internal Medicine Nephrology
DX: E11.22 Type 2 diabetes mellitus with diabetic chronic kidney disease (principal); I12.9 Hypertensive chronic kidney disease with stage 1 through stage 4 chronic kidney disease, or unspecified chronic kidney disease; N18.30 Chronic kidney disease, stage 3 unspecified; D63.1 Anemia in chronic kidney disease; E78.5 Hyperlipidemia, unspecified
CPT/HCPCS: 36415; 80053; 85025